=== PATIENT | female | born 1930 | race Caucasian/White ===

== ENCOUNTER 2019-03-13 17:39 | Emergency (ER) | payer MEDICARE, OTHER ==
[2019-03-13 17:48] VITALS: RESP 18; TEMP 98.3
[2019-03-13] MEDS ORDERED: TOPICAL SKIN ADHESIVE 1 EACH AMP TOPICAL ONE (19:18)
--- NOTE | 2019-03-13 19:20 | CT ---
EXAMINATION TYPE: CT facial bones wo con DATE OF EXAM: 03/13/2019 COMPARISON: None HISTORY: fall Pain CT DLP: 1039.2 mGycm Automated exposure control for dose reduction was used. TECHNIQUE: CT scan of the sinuses is performed without contrast, axial images are obtained, coronal r eformatted images are also reviewed. FINDINGS: The mandibular ring is intact. Temporomandibular joints are intact. The maxilla is intact. Zygomatic arches appear normal. Nasal bone is intact. Orbital margins are intact. There is no evidence of a blowout fracture. There is mild mucosal thicken ing at the left ostiomeatal complex. There is no evidence of retro-orbital mass. There is fluid level in the left maxillary sinus. There is soft tissue air bubble inferior to the left orbit. IMPRESSION: Mucosal thickening and fluid level left maxillary sinus. Soft tissue air lateral to the l eft maxillary sinus and inferior left orbit consistent with laceration. Minimal ethmoid sinusitis. No fracture line seen.
--- NOTE | 2019-03-13 19:26 | CT ---
EXAMINATION TYPE: CT brain ej khan DATE OF EXAM: 03/13/2019 COMPARISON: None HISTORY: fall Headache. Neck pain CT DLP: 1039.2 mGycm Automated exposure control for dose reduction was used. TECHNIQUE: CT scan of the head and cervical spine are performed without contrast. FINDINGS: There is cerebral cortical atrophy. There is hypodensity in the periventricular white mat ter. There is no mass effect nor midline shift. There is no sign of intracranial hemorrhage. The calv arium is intact. There is fluid level left maxillary sinus. Cervical vertebra have normal alignment. There is degenerative mild disc space narrowing at C5-6. Pos terior elements are intact. Skull base is intact. There is no evidence for fracture. IMPRESSION: Mild atrophy. Chronic small vessel ischemia. No acute intracranial abnormality. Mild spondylotic changes. No fracture seen.
[2019-03-13 19:31] LABS: Basophils # (A) 0.1 k/uL (0-0.2); Basophils % (A) 1 %; Eosinophils # (A) 0.1 k/uL (0-0.7); Eosinophils % (A) 1 %; HCT 38.8 % (34.0-46.0); HGB 13.2 gm/dL (11.4-16.0); Lymphocytes # (A) 1.7 k/uL (1.0-4.8); Lymphocytes % (A) 19 %; MCHC 33.9 g/dL (31.0-37.0); MCV 94.5 fL (80.0-100.0); Mean Platelet Volume 7.3; Monocytes # (A) 0.8 k/uL (0-1.0); Monocytes % (A) 9 %; Neutrophils # (A) 6.3 k/uL (1.3-7.7); Neutrophils % (A) 68 %; Platelet Count 205 k/uL (150-450); RBC 4.11 m/uL (3.80-5.40); WBC 9.2 k/uL (3.8-10.6)
[2019-03-13 19:35] LABS: Albumin 3.7 g/dL (3.5-5.0); Calcium 9.4 mg/dL (8.4-10.2); INR 0.9 (<1.2); Partial Thromboplastin Time 25.6 sec (22.0-30.0); Potassium 4.8 mmol/L (3.5-5.1); Prothrombin Time 10.2 sec (9.0-12.0); Total Bilirubin 0.8 mg/dL (0.2-1.3); Total Protein 7.2 g/dL (6.3-8.2)
[2019-03-13] MEDS ORDERED: DIPH,PERTUS(ACELL)TETVAC-LF 0.5 ML VIAL IM ONE (19:36)
--- NOTE | 2019-03-13 19:55 | XR ---
EXAMINATION TYPE: XR chest 1V DATE OF EXAM: 03/13/2019 COMPARISON: NONE HISTORY: Weakness TECHNIQUE: Single frontal view of the chest is obtained. FINDINGS: Heart is enlarged. There is no heart failure. Costophrenic angles are clear. Thoracic aort a is atheromatous. Lungs are clear of consolidation. IMPRESSION: Mild cardiomegaly. No active cardiopulmonary disease.
[2019-03-13 20:02] LABS: Appearance,Urine Cloudy (Clear); Bacteria,Urine Moderate /hpf; Bilirubin,Urine Negative (Negative); Blood,Urine Large (Negative); Color,Urine Yellow; Glucose,Urine (UA) Negative (Negative); Ketones,Urine Negative (Negative); Leukocyte Esterase,Urine Large (Negative); Nitrite,Urine Negative (Negative); Protein,Urine Trace (Negative); RBC,Urine >182 /hpf (0-5); Specific Gravity,Urine 1.014 (1.001-1.035); Squamous Epithelial Cell,Urine 3 /hpf (0-4); Urobilinogen,Urine <2.0 mg/dL (<2.0); WBC,Urine >182 /hpf (0-5)
[2019-03-13] MEDS ORDERED: cefTRIAXone IN SWFI 1,000 MG/10 ML SYRINGE IVP STA (20:26)
--- NOTE | 2019-03-13 20:33 | ED ---
Fall HPI - General Chief Complaint: Fall Stated Complaint: Fall Time Seen by Provider: 03/13/19 18:15 Source: patient, RN notes reviewed, old records reviewed Mode of arrival: EMS - History of Present Illness Initial Comments: 88 rolled female presents today for trip and fall. Patient reports that she fell bumping water bottle in her driveway. She fell onto her face causing his swelling and abrasion over left eye, chin. She has has an abrasion over her hand. She denies any other significant complaints of pain. Patient reports that she wasn't feeling dizzy or lightheaded prior to this. - Related Data Previous Rx's Medication Instructions Recorded Cephalexin [Keflex] 500 mg PO Q6HR #28 cap 03/13/19 Ibuprofen 600 mg PO TID #20 tablet 03/13/19 Allergies Allergy/AdvReac Type Severity Reaction Status Date / Time aspirin Allergy Abdominal Verified 03/13/19 17:48 Pain Review of Systems ROS Statement: Those systems with pertinent positive or pertinent negative responses have been documented in the HPI. ROS Other: All systems not noted in ROS Statement are negative. Past Medical History Past Medical History: Hypertension History of Any Multi-Drug Resistant Organisms: None Reported Past Surgical History: Orthopedic Surgery Past Psychological History: No Psychological Hx Reported Smoking Status: Former smoker Past Alcohol Use History: None Reported Past Drug Use History: None Reported General Exam - General Exam Comments Initial Comments: 88-year-old female. Alert and oriented. No distress. Limitations: no limitations General appearance: alert, in no apparent distress Head exam: Present: atraumatic, normocephalic, normal inspection Eye exam: Present: PERRL, EOMI. Absent: normal appearance (He has erythema, swelling. ), scleral icterus, conjunctival injection, periorbital swelling ENT exam: Present: normal exam, mucous membranes moist Neck exam: Present: normal inspection. Absent: tenderness, meningismus, lymphadenopathy Respiratory exam: Present: normal lung sounds bilaterally. Absent: respiratory distress, wheezes, rales, rhonchi, stridor Cardiovascular Exam: Present: regular rate, normal rhythm, normal heart sounds. Absent: systolic murmur, diastolic murmur, rubs, gallop, clicks GI/Abdominal exam: Present: soft, normal bowel sounds. Absent: distended, tenderness, guarding, rebound, rigid Extremities exam: Present: normal inspection, full ROM, normal capillary refill, other (swelling over R ankle, no deformity, patient is neurovascularly intact. Tenderness over R lateral malleolousl. ). Absent: tenderness, pedal edema, joint swelling, calf tenderness Back exam: Present: normal inspection Neurological exam: Present: alert, oriented X3, CN II-XII intact Psychiatric exam: Present: normal affect, normal mood Skin exam: Present: warm, dry, intact, normal color. Absent: rash Course Vital Signs 03/13/19 03/13/19 17:43 20:46 Temperature 98.3 F Pulse Rate 77 79 Respiratory 18 18 Rate Blood Pressure 182/86 158/52 O2 Sat by Pulse 96 95 Oximetry Procedures - Laceration Laceration #1 Site: face (abrasion over L eyebrow) Size (cm): 2 Description: linear Depth: simple, single layer Pre-repair: wound explored, irrigated extensively Type of Sutures: other (dermabond) Patient Tolerated Procedure: well, no complications Medical Decision Making - Medical Decision Making 88 year old female with CC of fall, L ankle pain, facial abrasions. Labs and EKG obtained. Patient has evidence of UTI, given IV rocephin. Patient CT brain and Cspine are negative for acute process. PAtient has ankle and leg xray are negat alda for fracture. Given ROSY wrap for ankle sprain. Wound over eyebrow was cleaned and dermabond applied. Discussed close follow up with PCP and return parameters discussed. - Lab Data Result diagrams: 03/13/19 19:12 03/13/19 19:12 Lab Results 03/13/19 03/13/19 03/13/19 Range/Units 18:08 19:12 19:12 WBC 9.2 (3.8-10.6) k/uL RBC 4.11 (3.80-5.40) m/uL Hgb 13.2 (11.4-16.0) gm/dL Hct 38.8 (34.0-46.0) % MCV 94.5 (80.0-100.0) fL MCH 32.0 (25.0-35.0) pg MCHC 33.9 (31.0-37.0) g/dL RDW 14.0 (11.5-15.5) % Plt Count 205 (150-450) k/uL Neutrophils % 68 % Lymphocytes % 19 % Monocytes % 9 % Eosinophils % 1 % Basophils % 1 % Neutrophils # 6.3 (1.3-7.7) k/uL Lymphocytes # 1.7 (1.0-4.8) k/uL Monocytes # 0.8 (0-1.0) k/uL Eosinophils # 0.1 (0-0.7) k/uL Basophils # 0.1 (0-0.2) k/uL PT (9.0-12.0) sec INR (<1.2) APTT (22.0-30.0) sec Sodium 139 (137-145) mmol/L Potassium 4.8 (3.5-5.1) mmol/L Chloride 108 H (98-107) mmol/L Carbon Dioxide 23 (22-30) mmol/L Anion Gap 8 mmol/L BUN 18 H (7-17) mg/dL Creatinine 0.98 (0.52-1.04) mg/dL Est GFR (CKD-EPI)AfAm 60 (>60 ml/min/1.73 sqM) Est GFR (CKD-EPI)NonAf 52 (>60 ml/min/1.73 sqM) Glucose 135 H (74-99) mg/dL Calcium 9.4 (8.4-10.2) mg/dL Total Bilirubin 0.8 (0.2-1.3) mg/dL AST 17 (14-36) U/L ALT 15 (9-52) U/L Alkaline Phosphatase 85 (38-126) U/L Total Protein 7.2 (6.3-8.2) g/dL Albumin 3.7 (3.5-5.0) g/dL Urine Color Yellow Urine Appearance Cloudy H (Clear) Urine pH 7.0 (5.0-8.0) Ur Specific [place] 1.014 (1.001-1.035) Urine Protein Trace H (Negative) Urine Glucose (UA) Negative (Negative) Urine Ketones Negative (Negative) Urine Blood Large H (Negative) Urine Nitrite Negative (Negative) Urine Bilirubin Negative (Negative) Urine Urobilinogen <2.0 (<2.0) mg/dL Ur Leukocyte Esterase Large H (Negative) Urine RBC >182 H (0-5) /hpf Urine WBC >182 H (0-5) /hpf Urine WBC Clumps Moderate H (None) /hpf Ur Squamous Epith Cells 3 (0-4) /hpf Urine Bacteria Moderate H (None) /hpf 03/13/19 Range/Units 19:12 WBC (3.8-10.6) k/uL RBC (3.80-5.40) m/uL Hgb (11.4-16.0) gm/dL Hct (34.0-46.0) % MCV (80.0-100.0) fL MCH (25.0-35.0) pg MCHC (31.0-37.0) g/dL RDW (11.5-15.5) % Plt Count (150-450) k/uL Neutrophils % % Lymphocytes % % Monocytes % % Eosinophils % % Basophils % % Neutrophils # (1.3-7.7) k/uL Lymphocytes # (1.0-4.8) k/uL Monocytes # (0-1.0) k/uL Eosinophils # (0-0.7) k/uL Basophils # (0-0.2) k/uL PT 10.2 (9.0-12.0) sec INR 0.9 (<1.2) APTT 25.6 (22.0-30.0) sec Sodium (137-145) mmol/L Potassium (3.5-5.1) mmol/L Chloride (98-107) mmol/L Carbon Dioxide (22-30) mmol/L Anion Gap mmol/L BUN (7-17) mg/dL Creatinine (0.52-1.04) mg/dL Est GFR (CKD-EPI)AfAm (>60 ml/min/1.73 sqM) Est GFR (CKD-EPI)NonAf (>60 ml/min/1.73 sqM) Glucose (74-99) mg/dL Calcium (8.4-10.2) mg/dL Total Bilirubin (0.2-1.3) mg/dL AST (14-36) U/L ALT (9-52) U/L Alkaline Phosphatase (38-126) U/L Total Protein (6.3-8.2) g/dL Albumin (3.5-5.0) g/dL Urine Color Urine Appearance (Clear) Urine pH (5.0-8.0) Ur Specific [place] (1.001-1.035) Urine Protein (Negative) Urine Glucose (UA) (Negative) Urine Ketones (Negative) Urine Blood (Negative) Urine Nitrite (Negative) Urine Bilirubin (Negative) Urine Urobilinogen (<2.0) mg/dL Ur Leukocyte Esterase (Negative) Urine RBC (0-5) /hpf Urine WBC (0-5) /hpf Urine WBC Clumps (None) /hpf Ur Squamous Epith Cells (0-4) /hpf Urine Bacteria (None) /hpf 03/13/19 20:32 EKG performed at 2024 shows normal sinus rhythm normal ECG. Ventricular rate of 76 bpm. Normal is 134 ms. QS duration is 82 ms. QT QTc is 362/[address] elevation or T-wave inversions. - Radiology Data Radiology results: report reviewed Facial CT shows mucosal thickening of the fluid in the level of the left maxillary sinus. Soft tissue air lateral to the left maxillary sinus and inferior left orbit consistent with laceration. Ethmoid sinusitis. No fracture line is seen. CT shows mild atrophy, chronic small vessel ischemic changes. No acute injury cranial abnormality. Mild spondylytic changes. No fracture seen. Disposition Clinical Impression: UTI (urinary tract infection), Fall, Facial contusion, Facial abrasion, Ankle sprain Disposition: HOME SELF-CARE Condition: Good Instructions (If sedation given, give patient instructions): Ankle Sprain (ED), Urinary Tract Infection in Women (ED), Abrasion (ED) Additional Instructions: Patient advised to follow-up with your primary care physician. Ice the areas of bruising and soreness. Take the antibiotics as prescribed. Rest ice and elevate her foot and ankle. Return to the emergency department if any alarming signs or symptoms occur. Prescriptions: Ibuprofen 600 mg PO TID #20 tablet Cephalexin [Keflex] 500 mg PO Q6HR #28 cap Is patient prescribed a controlled substance at d/c from ED?: No Referrals: Rodolfo Landry MD [Primary Care Provider] - 1-2 days Time of Disposition: 21:14
[2019-03-13 20:47] VITALS: BP 158/52; PULSE 79
--- NOTE | 2019-03-13 21:06 | XR ---
EXAMINATION TYPE: XR ankle complete LT DATE OF EXAM: 03/13/2019 COMPARISON: NONE HISTORY: Ankle pain TECHNIQUE: 3 views FINDINGS: Ankle mortise is anatomic. There is Achilles calcaneal spurring. I see no fracture nor disl ocation. IMPRESSION: No acute abnormality of the left ankle.
--- NOTE | 2019-03-13 21:07 | XR ---
EXAMINATION TYPE: XR tibia fibula LT DATE OF EXAM: 03/13/2019 COMPARISON: NONE HISTORY: Pain TECHNIQUE: 4 views FINDINGS: Tibia and fibula appear intact. 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 Ankle morti se is anatomic. IMPRESSION: No acute abnormality of the left tibia and fibula.
--- NOTE | 2019-03-13 21:07 | XR ---
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 Left hip joint is intact. There is vascular calcification. I see no fracture nor dislocation. IMPRESSION: Negative left femur exam.
[2019-03-13] MEDS ORDERED: CEPHALEXIN 500MG STARTER PACK 4 CAP BTL PO STA (21:16)
[2019-03-13] MEDS ORDERED: ACET/COD 300 MG/30 MG STARTER PACK 6 TAB BTL PO STA (21:16)
== END 2019-03-13 21:38 | disposition home or self-care (01) ==
LOC: EC 17:39
DX: S00.12XA Contusion of left eyelid and periocular area, initial encounter (principal); S93.402A Sprain of unspecified ligament of left ankle, initial encounter; N39.0 Urinary tract infection, site not specified; I10 Essential (primary) hypertension; Z23 Encounter for immunization; Z88.6 Allergy status to analgesic agent; Z87.891 Personal history of nicotine dependence; W01.198A Fall on same level from slipping, tripping and stumbling with subsequent striking against other object, initial encounter; Y93.89 Activity, other specified; Y92.89 Other specified places as the place of occurrence of the external cause
CPT/HCPCS: 36415; 93005; 80053; 85025; 85610; 85730; 81001; 87086; 87077; 87186; 73552; 73590; 73610; 71045; 72125; 70486; 70450; 90715; 99285; 96374; 90471; J0696

== ENCOUNTER 2020-03-17 20:12 | Emergency (ER) | payer MEDICARE, OTHER ==
[2020-03-17] MEDS ORDERED: SODIUM CHLORIDE 0.9% 1,000 ML IV STA (20:24)
[2020-03-17] MEDS ORDERED: ACETAMINOPHEN TAB 500 MG TAB PO STA (20:24)
--- NOTE | 2020-03-17 20:27 | ED ---
Weakness HPI - General Stated complaint: flu like symptoms Time Seen by Provider: 03/17/20 20:22 Source: RN notes reviewed, old records reviewed - History of Present Illness Initial comments: This is a 89-year-old female to the ER for evaluation patient presents today for evaluation regards to not feeling well patient does have history of headaches bodyaches fevers weakness not feeling well. A she'll poor story with secondary dementia MD Complaint: generalized weakness, lack of energy, difficulty walking -: days(s) Location: generalized Severity: moderate Severity scale (1-10): 5 Quality: constant Consistency: constant Improves with: none Worsens with: none Context: recent illness Associated Symptoms: denies other symptoms - Related Data Previous Rx's Medication Instructions Recorded Cephalexin [Keflex] 500 mg PO Q6HR #28 cap 03/13/19 Ibuprofen 600 mg PO TID #20 tablet 03/13/19 Nitrofurantoin Monohyd/M-Cryst 100 mg PO Q12HR #10 cap 03/17/20 [Macrobid] Allergies Allergy/AdvReac Type Severity Reaction Status Date / Time aspirin Allergy Abdominal Verified 03/17/20 20:28 Pain Review of Systems ROS Statement: Those systems with pertinent positive or pertinent negative responses have been documented in the HPI. ROS Other: All systems not noted in ROS Statement are negative. Past Medical History Past Medical History: Hypertension History of Any Multi-Drug Resistant Organisms: None Reported Past Surgical History: Orthopedic Surgery Past Psychological History: No Psychological Hx Reported Past Alcohol Use History: None Reported Past Drug Use History: None Reported General Exam General appearance: alert, in no apparent distress Head exam: Present: atraumatic, normocephalic, normal inspection Eye exam: Present: normal appearance, PERRL, EOMI. Absent: scleral icterus, conjunctival injection, periorbital swelling ENT exam: Present: normal exam, mucous membranes moist Neck exam: Present: normal inspection. Absent: tenderness, meningismus, lymphadenopathy Respiratory exam: Present: normal lung sounds bilaterally. Absent: respiratory distress, wheezes, rales, rhonchi, stridor Cardiovascular Exam: Present: regular rate, normal rhythm, normal heart sounds. Absent: systolic murmur, diastolic murmur, rubs, gallop, clicks GI/Abdominal exam: Present: soft, normal bowel sounds. Absent: distended, tenderness, guarding, rebound, rigid Extremities exam: Present: normal inspection, full ROM, normal capillary refill. Absent: tenderness, pedal edema, joint swelling, calf tenderness Back exam: Present: normal inspection Neurological exam: Present: alert, oriented X3, CN II-XII intact Psychiatric exam: Present: normal affect, normal mood Skin exam: Present: warm, dry, intact, normal color. Absent: rash Course Vital Signs 03/17/20 03/17/20 20:16 22:16 Temperature 99.4 F 98.3 F Pulse Rate 68 65 Respiratory 18 18 Rate Blood Pressure 153/95 176/70 O2 Sat by Pulse 97 96 Oximetry - Reevaluation(s) Reevaluation #1: Medical records reviewed No real significant improvement here in the emergency department Patient informed results and questions answered EKG Findings - EKG Comments: EKG Findings:: EKG is sinus rhythm 71, WA 142 QRS 88 QTc 4:15 Medical Decision Making - Medical Decision Making 89 female with UTI dehydration weakness. Patient isn't significantly no distress here in the ER we will discharge patient home from outpatient treatment - Lab Data Result diagrams: 03/17/20 20:37 03/17/20 20:37 Lab Results 03/17/20 03/17/20 03/17/20 Range/Units 20:37 20:37 20:37 WBC 7.3 (3.8-10.6) k/uL RBC 4.59 (3.80-5.40) m/uL Hgb 14.5 (11.4-16.0) gm/dL Hct 43.9 (34.0-46.0) % MCV 95.5 (80.0-100.0) fL MCH 31.7 (25.0-35.0) pg MCHC 33.2 (31.0-37.0) g/dL RDW 13.6 (11.5-15.5) % Plt Count 155 (150-450) k/uL MPV 9.7 Neutrophils % 61 % Lymphocytes % 23 % Monocytes % 9 % Eosinophils % 2 % Basophils % 2 % Neutrophils # 4.5 (1.3-7.7) k/uL Lymphocytes # 1.7 (1.0-4.8) k/uL Monocytes # 0.7 (0-1.0) k/uL Eosinophils # 0.1 (0-0.7) k/uL Basophils # 0.1 (0-0.2) k/uL Sodium 134 L (137-145) mmol/L Potassium 3.9 (3.5-5.1) mmol/L Chloride 104 (98-107) mmol/L Carbon Dioxide 26 (22-30) mmol/L Anion Gap 4 mmol/L BUN 16 (7-17) mg/dL Creatinine 0.97 (0.52-1.04) mg/dL Est GFR (CKD-EPI)AfAm 61 (>60 ml/min/1.73 sqM) Est GFR (CKD-EPI)NonAf 53 (>60 ml/min/1.73 sqM) Glucose 132 H (74-99) mg/dL Plasma Lactic Acid Kevin 1.4 (0.7-2.0) mmol/L Calcium 8.9 (8.4-10.2) mg/dL Phosphorus 3.0 (2.5-4.5) mg/dL Magnesium 1.7 (1.6-2.3) mg/dL Ferritin 50.5 (10.0-291.0) ng/mL Total Bilirubin 0.9 (0.2-1.3) mg/dL AST 20 (14-36) U/L ALT 11 (4-34) U/L Alkaline Phosphatase 72 (38-126) U/L Lactate Dehydrogenase 452 (313-618) U/L Creatine Kinase 22 L (30-135) U/L C-Reactive Protein 9.2 (<10.0) mg/L Total Protein 7.2 (6.3-8.2) g/dL Albumin 3.7 (3.5-5.0) g/dL Urine Color Urine Appearance (Clear) Urine pH (5.0-8.0) Ur Specific [place] (1.001-1.035) Urine Protein (Negative) Urine Glucose (UA) (Negative) Urine Ketones (Negative) Urine Blood (Negative) Urine Nitrite (Negative) Urine Bilirubin (Negative) Urine Urobilinogen (<2.0) mg/dL Ur Leukocyte Esterase (Negative) Urine RBC (0-5) /hpf Urine WBC (0-5) /hpf Urine WBC Clumps (None) /hpf Ur Squamous Epith Cells (0-4) /hpf Urine Bacteria (None) /hpf Urine Mucus (None) /hpf Influenza Type A RNA (Not Detectd) Influenza Type B (PCR) (Not Detectd) 03/17/20 03/17/20 Range/Units 21:30 21:30 WBC (3.8-10.6) k/uL RBC (3.80-5.40) m/uL Hgb (11.4-16.0) gm/dL Hct (34.0-46.0) % MCV (80.0-100.0) fL MCH (25.0-35.0) pg MCHC (31.0-37.0) g/dL RDW (11.5-15.5) % Plt Count (150-450) k/uL MPV Neutrophils % % Lymphocytes % % Monocytes % % Eosinophils % % Basophils % % Neutrophils # (1.3-7.7) k/uL Lymphocytes # (1.0-4.8) k/uL Monocytes # (0-1.0) k/uL Eosinophils # (0-0.7) k/uL Basophils # (0-0.2) k/uL Sodium (137-145) mmol/L Potassium (3.5-5.1) mmol/L Chloride (98-107) mmol/L Carbon Dioxide (22-30) mmol/L Anion Gap mmol/L BUN (7-17) mg/dL Creatinine (0.52-1.04) mg/dL Est GFR (CKD-EPI)AfAm (>60 ml/min/1.73 sqM) Est GFR (CKD-EPI)NonAf (>60 ml/min/1.73 sqM) Glucose (74-99) mg/dL Plasma Lactic Acid Kevin (0.7-2.0) mmol/L Calcium (8.4-10.2) mg/dL Phosphorus (2.5-4.5) mg/dL Magnesium (1.6-2.3) mg/dL Ferritin (10.0-291.0) ng/mL Total Bilirubin (0.2-1.3) mg/dL AST (14-36) U/L ALT (4-34) U/L Alkaline Phosphatase (38-126) U/L Lactate Dehydrogenase (313-618) U/L Creatine Kinase (30-135) U/L C-Reactive Protein (<10.0) mg/L Total Protein (6.3-8.2) g/dL Albumin (3.5-5.0) g/dL Urine Color Light Yellow Urine Appearance Cloudy H (Clear) Urine pH 7.0 (5.0-8.0) Ur Specific [place] 1.011 (1.001-1.035) Urine Protein Negative (Negative) Urine Glucose (UA) Negative (Negative) Urine Ketones Negative (Negative) Urine Blood Small H (Negative) Urine Nitrite Negative (Negative) Urine Bilirubin Negative (Negative) Urine Urobilinogen <2.0 (<2.0) mg/dL Ur Leukocyte Esterase Large H (Negative) Urine RBC 13 H (0-5) /hpf Urine WBC 99 H (0-5) /hpf Urine WBC Clumps Few H (None) /hpf Ur Squamous Epith Cells 2 (0-4) /hpf Urine Bacteria Occasional H (None) /hpf Urine Mucus Rare H (None) /hpf Influenza Type A RNA Not Detected (Not Detectd) Influenza Type B (PCR) Not Detected (Not Detectd) - Radiology Data Radiology results: report reviewed (X-ray abdominal series and chest is negative for acute disease), image reviewed Disposition Clinical Impression: Gastroenteritis, Dehydration, UTI (urinary tract infection) Disposition: HOME SELF-CARE Condition: Good Instructions (If sedation given, give patient instructions): Urinary Tract Infection in Women (ED), Acute Nausea and Vomiting (ED), Acute Diarrhea (ED) Prescriptions: Nitrofurantoin Monohyd/M-Cryst [Macrobid] 100 mg PO Q12HR #10 cap Is patient prescribed a controlled substance at d/c from ED?: No Referrals: None,Stated [REFERRING] - 1-2 days
[2020-03-17 20:28] VITALS: RESP 18
[2020-03-17 21:05] LABS: Basophils # (A) 0.1 k/uL (0-0.2); Basophils % (A) 2 %; Eosinophils # (A) 0.1 k/uL (0-0.7); Eosinophils % (A) 2 %; HCT 43.9 % (34.0-46.0); HGB 14.5 gm/dL (11.4-16.0); Lymphocytes # (A) 1.7 k/uL (1.0-4.8); Lymphocytes % (A) 23 %; MCH 31.7 pg (25.0-35.0); MCHC 33.2 g/dL (31.0-37.0); MCV 95.5 fL (80.0-100.0); Mean Platelet Volume 9.7; Monocytes # (A) 0.7 k/uL (0-1.0); Monocytes % (A) 9 %; Neutrophils # (A) 4.5 k/uL (1.3-7.7); Neutrophils % (A) 61 %; Platelet Count 155 k/uL (150-450); RBC 4.59 m/uL (3.80-5.40); RDW 13.6 % (11.5-15.5); WBC 7.3 k/uL (3.8-10.6)
[2020-03-17 21:18] LABS: Potassium 3.9 mmol/L (3.5-5.1)
[2020-03-17 21:19] LABS: Albumin 3.7 g/dL (3.5-5.0); C Reactive Protein 9.2 mg/L (<10.0); Calcium 8.9 mg/dL (8.4-10.2); Magnesium 1.7 mg/dL (1.6-2.3); Total Bilirubin 0.9 mg/dL (0.2-1.3); Total Protein 7.2 g/dL (6.3-8.2)
--- NOTE | 2020-03-17 21:33 | XR ---
EXAMINATION TYPE: XR abdomen acute w cxr DATE OF EXAM: 03/17/2020 COMPARISON: Chest x-ray 03/13/2019 HISTORY: Weakness. Abdominal pain TECHNIQUE: 4 views FINDINGS: There is coarse pulmonary interstitial infiltrate. Heart is enlarged. Thoracic aorta is ath eromatous. There is no sign of intestinal obstruction or pneumoperitoneum. Fecal pattern is normal. There is pos sible calculus in the lower pole of the left kidney. There is possible right-sided renal calculi. The re is atherosclerotic vascular calcification. IMPRESSION: Cardiomegaly and mild pulmonary interstitial density that could be minimal heart failure. Interstitial density increased compared to old exam. Nonacute abdomen.
[2020-03-17] MEDS ORDERED: ONDANSETRON 4 MG ODT STARTER PACK 2 TAB BTL PO STA (21:36)
[2020-03-17 22:03] LABS: Appearance,Urine Cloudy (Clear); Bacteria,Urine Occasional /hpf; Bilirubin,Urine Negative (Negative); Blood,Urine Small (Negative); Color,Urine Light Yellow; Glucose,Urine (UA) Negative (Negative); Ketones,Urine Negative (Negative); Leukocyte Esterase,Urine Large (Negative); Mucus,Urine Rare /hpf; Nitrite,Urine Negative (Negative); Protein,Urine Negative (Negative); RBC,Urine 13 /hpf (0-5); Specific Gravity,Urine 1.011 (1.001-1.035); Squamous Epithelial Cell,Urine 2 /hpf (0-4); Urobilinogen,Urine <2.0 mg/dL (<2.0); WBC,Urine 99 /hpf (0-5)
[2020-03-17 22:19] VITALS: BP 176/70; PULSE 65; TEMP 98.3
[2020-03-17] MEDS ORDERED: cefTRIAXone IN SWFI 1,000 MG/10 ML SYRINGE IVP STA (22:28)
[2020-03-17] MEDS ORDERED: NITROFURANTOIN MONOHYD/M-CRYST 100 MG CAP PO STA (22:28)
[2020-03-18 09:46] LABS: Ferritin 50.5 ng/mL (10.0-291.0)
== END 2020-03-17 23:08 | disposition home or self-care (01) ==
LOC: EC 20:12
DX: N39.0 Urinary tract infection, site not specified (principal); K52.9 Noninfective gastroenteritis and colitis, unspecified; E86.0 Dehydration; Z88.6 Allergy status to analgesic agent
CPT/HCPCS: 36415; 93005; 80053; 82728; 82550; 83605; 83615; 83735; 84100; 85025; 86140; 81001; 87086; 87077; 87186; 87502; 74022; 99285; 96374; 96361; J0696; S0119

== ENCOUNTER 2020-06-29 11:39 | Inpatient (IN) | payer MEDICARE, OTHER ==
[2020-06-29] MEDS ORDERED: SODIUM CHLORIDE 0.9% 500 ML 500 ML IV STA (11:41)
[2020-06-29] MEDS ORDERED: MORPHINE SULFATE 4 MG/ML SYRINGE IVP STA (11:43)
--- NOTE | 2020-06-29 12:13 | ED ---
General Adult HPI - General Chief complaint: Fall Stated complaint: Leg pain Time Seen by Provider: 06/29/20 11:40 Source: patient, RN notes reviewed, old records reviewed Mode of arrival: EMS Limitations: no limitations - History of Present Illness Initial comments: 89-year-old female presents by EMS with right hip pain. Patient denies fall. She was found by her family member sitting in the kitchen. She had been sitting there for approximately 12-14 hours. She denies chest pain or dyspnea. She denies head injury. She does not believe she fell but is not a clear historian. No nausea vomiting. She states she has been eating and drinking well prior to this. No fevers. - Related Data Previous Rx's Medication Instructions Recorded Cephalexin [Keflex] 500 mg PO Q6HR #28 cap 03/13/19 Ibuprofen 600 mg PO TID #20 tablet 03/13/19 Nitrofurantoin Monohyd/M-Cryst 100 mg PO Q12HR #10 cap 03/17/20 [Macrobid] Allergies Allergy/AdvReac Type Severity Reaction Status Date / Time aspirin Allergy Abdominal Verified 06/29/20 13:19 Pain Review of Systems ROS Statement: Those systems with pertinent positive or pertinent negative responses have been documented in the HPI. ROS Other: All systems not noted in ROS Statement are negative. Past Medical History Past Medical History: Hypertension Additional Past Medical History / Comment(s): skin cancer on nose- removed History of Any Multi-Drug Resistant Organisms: None Reported Past Surgical History: Orthopedic Surgery Past Psychological History: No Psychological Hx Reported Smoking Status: Never smoker Past Alcohol Use History: None Reported Past Drug Use History: None Reported General Exam Limitations: no limitations General appearance: alert, in no apparent distress Head exam: Present: atraumatic, normocephalic Eye exam: Present: normal appearance, PERRL ENT exam: Present: normal exam Neck exam: Present: normal inspection. Absent: tenderness, meningismus Respiratory exam: Present: normal lung sounds bilaterally. Absent: respiratory distress, wheezes Cardiovascular Exam: Present: regular rate, normal rhythm GI/Abdominal exam: Present: soft. Absent: distended, tenderness, guarding, rebound Extremities exam: Present: other (Distal pulses are 2+, the right hip is shortened and externally rotated with severe pain with any movement.). Absent: pedal edema, joint swelling, calf tenderness Neurological exam: Present: alert, oriented X3. Absent: motor sensory deficit Course Vital Signs 06/29/20 06/29/20 11:44 13:13 Temperature 98.1 F Pulse Rate 69 70 Respiratory 16 15 Rate Blood Pressure 223/88 201/69 O2 Sat by Pulse 96 98 Oximetry EKG Findings - EKG Comments: EKG Findings:: EKG: Sinus rhythm with PVC, baseline artifact, no ST segment elevation, rate of 68, CT interval 150, QRS duration 100, QTC 414 Medical Decision Making - Medical Decision Making 89 yo female presenting with suspected fall, and right pain. No external signs of trauma, no head injury reported. Workup initiated including x-rays of the chest, pelvis, right hip and right femur. Patient does have a midshaft femur fracture. She has good sensation distally with normal pulses. Severe pain with any movement. Head CT negative for intracranial hemorrhage or mass effect. I did discuss case with Dr. Marizol willard for orthopedics. He will admit for operative repair tomorrow for patient will be kept nothing by mouth after midnight. Medicine placed on consult, Dr. Santo has been contacted for medical clearance. Normal CBC, CMP showing normal white lites. Lactic acid is 3.6 suspect this is from dehydration as the patient was on the ground for proximally 14 hours. There is no sign of rhabdomyolysis, CK is 130 - Lab Data Result diagrams: 06/29/20 12:04 06/29/20 12:04 Lab Results 06/29/20 06/29/20 06/29/20 Range/Units 12:04 12:04 12:04 WBC 9.0 (3.8-10.6) k/uL RBC 3.59 L (3.80-5.40) m/uL Hgb 11.7 (11.4-16.0) gm/dL Hct 35.0 (34.0-46.0) % MCV 97.6 (80.0-100.0) fL MCH 32.5 (25.0-35.0) pg MCHC 33.4 (31.0-37.0) g/dL RDW 15.8 H (11.5-15.5) % Plt Count 149 L (150-450) k/uL MPV 10.2 Neutrophils % 79 % Lymphocytes % 13 % Monocytes % 7 % Eosinophils % 0 % Basophils % 0 % Neutrophils # 7.1 (1.3-7.7) k/uL Lymphocytes # 1.2 (1.0-4.8) k/uL Monocytes # 0.6 (0-1.0) k/uL Eosinophils # 0.0 (0-0.7) k/uL Basophils # 0.0 (0-0.2) k/uL Macrocytosis Slight PT 10.5 (9.0-12.0) sec INR 1.0 (<1.2) APTT 21.9 L (22.0-30.0) sec Sodium 138 (137-145) mmol/L Potassium 4.3 (3.5-5.1) mmol/L Chloride 108 H (98-107) mmol/L Carbon Dioxide 22 (22-30) mmol/L Anion Gap 8 mmol/L BUN 20 H (7-17) mg/dL Creatinine 0.86 (0.52-1.04) mg/dL Est GFR (CKD-EPI)AfAm 71 (>60 ml/min/1.73 sqM) Est GFR (CKD-EPI)NonAf 61 (>60 ml/min/1.73 sqM) Glucose 196 H (74-99) mg/dL Plasma Lactic Acid Kevin (0.7-2.0) mmol/L Calcium 9.1 (8.4-10.2) mg/dL Magnesium 2.0 (1.6-2.3) mg/dL Total Bilirubin 0.8 (0.2-1.3) mg/dL AST 20 (14-36) U/L ALT 10 (4-34) U/L Alkaline Phosphatase 70 (38-126) U/L Creatine Kinase 135 (30-135) U/L Total Protein 6.4 (6.3-8.2) g/dL Albumin 3.5 (3.5-5.0) g/dL Blood Type Blood Type Recheck Bld Type Recheck Status Antibody Screen Spec Expiration Date 06/29/20 06/29/20 Range/Units 12:04 12:04 WBC (3.8-10.6) k/uL RBC (3.80-5.40) m/uL Hgb (11.4-16.0) gm/dL Hct (34.0-46.0) % MCV (80.0-100.0) fL MCH (25.0-35.0) pg MCHC (31.0-37.0) g/dL RDW (11.5-15.5) % Plt Count (150-450) k/uL MPV Neutrophils % % Lymphocytes % % Monocytes % % Eosinophils % % Basophils % % Neutrophils # (1.3-7.7) k/uL Lymphocytes # (1.0-4.8) k/uL Monocytes # (0-1.0) k/uL Eosinophils # (0-0.7) k/uL Basophils # (0-0.2) k/uL Macrocytosis PT (9.0-12.0) sec INR (<1.2) APTT (22.0-30.0) sec Sodium (137-145) mmol/L Potassium (3.5-5.1) mmol/L Chloride (98-107) mmol/L Carbon Dioxide (22-30) mmol/L Anion Gap mmol/L BUN (7-17) mg/dL Creatinine (0.52-1.04) mg/dL Est GFR (CKD-EPI)AfAm (>60 ml/min/1.73 sqM) Est GFR (CKD-EPI)NonAf (>60 ml/min/1.73 sqM) Glucose (74-99) mg/dL Plasma Lactic Acid Kevin 3.6 H* (0.7-2.0) mmol/L Calcium (8.4-10.2) mg/dL Magnesium (1.6-2.3) mg/dL Total Bilirubin (0.2-1.3) mg/dL AST (14-36) U/L ALT (4-34) U/L Alkaline Phosphatase (38-126) U/L Creatine Kinase (30-135) U/L Total Protein (6.3-8.2) g/dL Albumin (3.5-5.0) g/dL Blood Type O Negative Blood Type Recheck No Previous Record Bld Type Recheck Status CABO Indicated Antibody Screen NEGATIVE Spec Expiration Date 07/02/20202303 Disposition Clinical Impression: Fall, Femur fracture, right Disposition: ADMITTED IP TO THIS [facility] Condition: Stable Is patient prescribed a controlled substance at d/c from ED?: No Referrals: Rodolfo Landry MD [Primary Care Provider] - 1-2 days Decision to Admit Reason: Admit from EC Decision Date: 06/29/20 Decision Time: 13:46
[2020-06-29 12:22] LABS: Basophils % (A) 0 %; Eosinophils % (A) 0 %; HGB 11.7 gm/dL (11.4-16.0); Lymphocytes # (A) 1.2 k/uL (1.0-4.8); Lymphocytes % (A) 13 %; MCH 32.5 pg (25.0-35.0); MCHC 33.4 g/dL (31.0-37.0); MCV 97.6 fL (80.0-100.0); Macrocytosis Slight; Mean Platelet Volume 10.2; Monocytes # (A) 0.6 k/uL (0-1.0); Monocytes % (A) 7 %; Neutrophils # (A) 7.1 k/uL (1.3-7.7); Neutrophils % (A) 79 %; Platelet Count 149 k/uL (150-450); RBC 3.59 m/uL (3.80-5.40); RDW 15.8 % (11.5-15.5)
[2020-06-29 12:34] LABS: Albumin 3.5 g/dL (3.5-5.0); Calcium 9.1 mg/dL (8.4-10.2); Potassium 4.3 mmol/L (3.5-5.1); Total Bilirubin 0.8 mg/dL (0.2-1.3); Total Protein 6.4 g/dL (6.3-8.2)
[2020-06-29 12:38] LABS: Prothrombin Time 10.5 sec (9.0-12.0)
[2020-06-29 12:39] LABS: Partial Thromboplastin Time 21.9 sec (22.0-30.0)
--- NOTE | 2020-06-29 12:43 | CT ---
EXAMINATION TYPE: CT brain ej khan DATE OF EXAM: 06/29/2020 COMPARISON: 03/13/2019 HISTORY: Fall CT DLP: 1258.9 mGycm Automated exposure control for dose reduction was used. TECHNIQUE: CT scan of the head and cervical spine are performed without contrast. FINDINGS: The ventricles, basal cisterns and sulci over the convexities are within normal limits for the patient's age. There is diffuse decreased density in the periventricular white matter consistent with chronic ischem ic demyelination. There is an area of decreased density involving the cortex and subcortical white ma tter in the right posterior temporal lobe which was not seen previously but appears to represent a ruby bacute to remote infarct. There is no acute intra or extra-axial or hemorrhage. The posterior fossa is grossly normal. The intraorbital contents appear normal and symmetric. Visualized paranasal sinuses and mastoid air c ells are well aerated. Cervical spine is visualized in its entirety from C1 through upper thoracic levels and demonstrates s atisfactory alignment without evidence of acute fracture or dislocation. Prevertebral soft tissue ap pears within normal limits. The C1-C2 articulation is unremarkable. There is moderate to marked deg enerative disc disease at the C5-6 and C6-7 levels and mild degenerative disc disease at the C4-5 lev el IMPRESSION: 1. There is no acute fracture or dislocation evident in the cervical spine. 2. No acute intracranial hemorrhage, mass effect, or midline shift is seen. 3. 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 4. 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
[2020-06-29] MEDS ORDERED: HYDROmorphone 0.5 MG/0.5 ML SYRINGE IVP STA (12:50)
--- NOTE | 2020-06-29 13:05 | XR ---
EXAMINATION TYPE: XR chest 1V portable DATE OF EXAM: 06/29/2020 COMPARISON: 05/13/2018 HISTORY: Fall TECHNIQUE: Single frontal view of the chest is obtained. FINDINGS: There is mild interstitial prominence and prominence of the pulmonary vasculature the upper lung zones. In combination with prominence of the heart size findings may indicate mild CHF. There is no pleural effusion or pneumothorax. The osseous structures are grossly intact. IMPRESSION: Findings possibly indicate mild CHF and clinical correlation follow-up is recommended.
[2020-06-29] MEDS ORDERED: SODIUM CHLORIDE 0.9% 1,000 ML IV STA (13:10)
--- NOTE | 2020-06-29 13:10 | XR ---
EXAMINATION TYPE: XR Hip RT and AP Pelvis DATE OF EXAM: 06/29/2020 COMPARISON: None HISTORY: Trauma TECHNIQUE: A single AP view of the pelvis is obtained. Two views of the right hip are obtained. FINDINGS: There is no acute fracture/dislocation evident in the pelvis. The hip and sacroiliac join ts appear symmetric and unremarkable. The overlying soft tissue appears unremarkable. There is an oblique spiral fracture of the proximal shaft of the right femur. There is no hip disloca tion. There is osteophytic change of both hips with moderate joint space narrowing. IMPRESSION: 1. No evidence of pelvic fracture. 2. Markedly displaced oblique fracture of the proximal shaft of the right femur. 3. Moderate osteophytic change of both hips but there is no evidence of hip dislocation or intra-julia cular hip fracture..
[2020-06-29] MEDS ORDERED: hydrALAZINE HCL 20 MG/ML 1 ML VIAL IVP STA (13:30)
[2020-06-29] MEDS ORDERED: ONDANSETRON 4 MG/2 ML VIAL IVP PRN (13:30)
[2020-06-29] MEDS ORDERED: MORPHINE SULFATE 2 MG/ML SYRINGE IVP PRN (13:30)
--- NOTE | 2020-06-29 13:37 | P.CONS ---
History of Present Illness - Reason for Consult Consult date: 06/29/20 Medical management - Chief Complaint Right hip pain - History of Present Illness This is a 89-year-old female with past medical history noted below significant for essential hypertension, hyperlipidemia, and rheumatoid arthritis that presented to the emergency room after she was found on her kitchen floor by her daughter this morning. Patient states alone in a condo and usually talk to her mother every morning. Her mother called her 2 or 3 times this morning with no response so she went and checked on her and found her laying on the floor in the kitchen. Patient was awake and alert. She reported that she slipped out of the chair last night and apparently stayed on the floor all night. Patient was having pain involving her right lower extremity and x-ray showed a displaced fracture of the proximal shaft of the right femur. Computed tomography scan of the head and cervical spine showed no acute findings. Patient and her daughter told me that patient is usually fairly active and is able to walk around with no difficulty. She is also able to climb stairs with assistance. Patient denies any chest pain or dizziness last night. Apparently she had a mechanical fall and was too weak to get up. Patient denies any chest pain at this time. No orthopnea. No known underlying diabetes or chronic kidney disease. Review of Systems Review of system: 14 points review of systems were obtained and were negative except to what were mentioned in the HPI. Past Medical History Past Medical History: Hypertension Additional Past Medical History / Comment(s): skin cancer on nose- removed History of Any Multi-Drug Resistant Organisms: None Reported Past Surgical History: Orthopedic Surgery Past Psychological History: No Psychological Hx Reported Smoking Status: Never smoker Past Alcohol Use History: None Reported Past Drug Use History: None Reported Medications and Allergies Home Medications Medication Instructions Recorded Confirmed Type Cephalexin [Keflex] 500 mg PO Q6HR #28 cap 03/13/19 Rx Ibuprofen 600 mg PO TID #20 tablet 03/13/19 Rx Nitrofurantoin Monohyd/M-Cryst 100 mg PO Q12HR #10 cap 03/17/20 Rx [Macrobid] Allergies Allergy/AdvReac Type Severity Reaction Status Date / Time aspirin Allergy Abdominal Verified 06/29/20 13:19 Pain Physical Exam Vitals: Vital Signs Temp Pulse Resp BP Pulse Ox 06/29/20 13:13 70 15 201/69 98 06/29/20 11:44 98.1 F 69 16 223/88 96 Intake and Output 06/28/20 06/29/20 06/29/20 22:59 06:59 14:59 Other: Weight 81.647 kg General: The patient is awake and alert, in no distress Eye: there is normal conjunctiva bilaterally. Neck: The neck is supple, there is no JVD. Cardiovascular: Normal S1-S2, no S3-S4, no murmurs. Respiratory: Lungs clear to auscultation bilaterally Gastrointestinal: Abdomen is soft, nontender Musculoskeletal: There is no pedal edema. Neurological:. Speech is normal. Skin: Skin is warm and dry Results CBC & Chem 7: 06/29/20 12:04 06/29/20 12:04 Labs: Abnormal Lab Results - Last 24 Hours (Table) 06/29/20 06/29/20 06/29/20 Range/Units 12:04 12:04 12:04 RBC 3.59 L (3.80-5.40) m/uL RDW 15.8 H (11.5-15.5) % Plt Count 149 L (150-450) k/uL APTT 21.9 L (22.0-30.0) sec Chloride 108 H (98-107) mmol/L BUN 20 H (7-17) mg/dL Glucose 196 H (74-99) mg/dL Plasma Lactic Acid Kevin (0.7-2.0) mmol/L 06/29/20 Range/Units 12:04 RBC (3.80-5.40) m/uL RDW (11.5-15.5) % Plt Count (150-450) k/uL APTT (22.0-30.0) sec Chloride (98-107) mmol/L BUN (7-17) mg/dL Glucose (74-99) mg/dL Plasma Lactic Acid Kevin 3.6 H* (0.7-2.0) mmol/L Assessment and Plan Assessment: This is a 89-year-old female was brought into the emergency room with a chief complaint of right lower extremity pain after she was found on her kitchen floor this morning. Patient was evaluated in the ER and admitted to the hospital for further management of her medical problems noted below. 1. Right femoral fracture, seen and evaluated by orthopedic. Plan for possible surgery in the morning. 2. Medical clearance, patient appears to be at an acceptable risk according to RCRI score to proceed with low to moderate risk orthopedic surgery. I would work on optimizing her blood pressure today. Check CPK to rule out severe rha bdomyolysis. 3. Hypertensive emergency, secondary to patient missing her home medications this morning and right femoral pain. I would give the patient 1 time dose of IV hydralazine 10 mg now and start her on Norvasc 5 mg daily. Her home medications are not known as of now until her daughter bring a list. 4. Chronic medical problems: Hyperlipidemia and rheumatoid arthritis 5. DVT prophylaxis with subcu heparin Today, I reviewed her medication list and lab work results. Twelve-lead EKG showed normal sinus rhythm. I would give final medical clearance later on today or early tomorrow morning depends on her BNP and CPK level as well as blood pressure. Thank you very much for the consultation. I will continue to follow up on the patient closely with you.
[2020-06-29] MEDS ORDERED: NALOXONE 0.4 MG/ML 1 ML VIAL IV PRN (13:40)
[2020-06-29] MEDS: SODIUM CHLORIDE 0.9% 1,000 ML IV SCH (14:07)
[2020-06-29 14:25] LABS: Appearance,Urine Clear (Clear); Bilirubin,Urine Negative (Negative); Blood,Urine Trace (Negative); Color,Urine Yellow; Glucose,Urine (UA) Negative (Negative); Ketones,Urine Negative (Negative); Leukocyte Esterase,Urine Negative (Negative); Mucus,Urine Rare /hpf; Nitrite,Urine Negative (Negative); Protein,Urine Trace (Negative); RBC,Urine 8 /hpf (0-5); Specific Gravity,Urine 1.015 (1.001-1.035); Squamous Epithelial Cell,Urine 2 /hpf (0-4); Urobilinogen,Urine <2.0 mg/dL (<2.0); WBC,Urine 3 /hpf (0-5)
[2020-06-29] MEDS: amLODIPine 5 MG TAB PO SCH (15:07)
[2020-06-29] MEDS ORDERED: ONDANSETRON 4 MG/2 ML VIAL IVP STA (15:23)
--- NOTE | 2020-06-29 20:54 | P.HPOR ---
History of Present Illness H&P Date: 06/29/20 Chief Complaint: Right lower extremity pain with right femur fracture Patient is a very pleasant 89-year-old female who is a home ambulator with a cane or walker who presented to the emergency room after being found on her floor by her daughter. She denied the floor overnight for over 14 hours. She does not remember specific fall. She was unable to get up due to pain at her right leg. She does not know if she blacked out or loss consciousness. She denies falling. She denies any other problems with her leg prior to this. She says that she normally walks around the house with a cane or walker. She does not drive. She lives by herself. Her daughter helps her with meals and cleaning. In the emergency room patient was found to have a femoral shaft fracture. She is neurologically intact. She is not having any other specific symptoms with pain in other areas. She was found to have significant hypertension with her systolic over 200. Currently she remains in bed comfortable as long as she is holding her leg still. She denies any headaches or shortness of breath. She denies any fevers chills. She denies any antecedent pain. She denies any nausea or vomiting or recent illness. Review of Systems As stated per HPI. She denies any prior problems with her leg. She is normally a hole in later with a walker or a cane. She does not drive. She denies any fevers chills. She denies any numbness daily. She denies any changes in bowel bladder function. She denies any chest pain or shortness of breath. She denies any specific fall. She says that she decided to sit down on the floor in the kitchen but she is unsure why. She says she couldn't get up because of the pain. Past Medical History Past Medical History: Hypertension, Rheumatoid Arthritis (RA) Additional Past Medical History / Comment(s): skin cancer on nose- removed History of Any Multi-Drug Resistant Organisms: None Reported Past Surgical History: Orthopedic Surgery Additional Past Surgical History / Comment(s): left knee surgery 2017 Past Psychological History: No Psychological Hx Reported Smoking Status: Never smoker Past Alcohol Use History: None Reported Past Drug Use History: None Reported - Past Family History Mother Family Medical History: CVA/TIA Father Family Medical History: Myocardial Infarction ([place]) Medications and Allergies Home Medications Medication Instructions Recorded Confirmed Type Escitalopram [Lexapro] 5 mg PO DAILY 06/29/20 06/29/20 History Ezetimibe [Zetia] 10 mg PO DAILY 06/29/20 06/29/20 History Metoprolol Tartrate [Lopressor] 50 mg PO BID 06/29/20 06/29/20 History Valsartan [Diovan] 320 mg PO DAILY 06/29/20 06/29/20 History Allergies Allergy/AdvReac Type Severity Reaction Status Date / Time aspirin Allergy Abdominal Verified 06/29/20 13:19 Pain Physical Examination Osteopathic Statement: *. No significant issues noted on an osteopathic struc tural exam other than those noted in the History and Physical/Consult. - C Spine: dermatomal strength & reflexes bilateral Shoulder strength: flexion: 5/5 (She has full active range of motion at her neck and upper extremities with 5 over 5 strength) - Fracture right femur Location of fracture: At her right thigh she has significant tenderness. There is some swelling Appearance: other (Her leg is shortened and externally rotated on the right. Her foot is pink and warm. Her compartments are soft. She has great tenderness and pain with any motion at her right leg. She has sustained dorsal flexion plantar flexion her toes. Capillary refill less than 2 seconds. Her other extremi) Distal extremity neurovascularly intact: Yes (Neurovascularly intact in bilateral upper and lower extremities. ) Results - Labs Labs: Abnormal Lab Results - Last 24 Hours (Table) 06/29/20 06/29/20 06/29/20 Range/Units 12:04 12:04 12:04 RBC 3.59 L (3.80-5.40) m/uL RDW 15.8 H (11.5-15.5) % Plt Count 149 L (150-450) k/uL APTT 21.9 L (22.0-30.0) sec Chloride 108 H (98-107) mmol/L BUN 20 H (7-17) mg/dL Glucose 196 H (74-99) mg/dL Plasma Lactic Acid Kevin (0.7-2.0) mmol/L Urine Protein (Negative) Urine Blood (Negative) Urine RBC (0-5) /hpf Urine Mucus (None) /hpf 03/13/21 03/13/21 Range/Units 12:04 14:06 RBC (3.80-5.40) m/uL RDW (11.5-15.5) % Plt Count (150-450) k/uL APTT (22.0-30.0) sec Chloride (98-107) mmol/L BUN (7-17) mg/dL Glucose (74-99) mg/dL Plasma Lactic Acid Kevin 3.6 H* (0.7-2.0) mmol/L Urine Protein Trace H (Negative) Urine Blood Trace H (Negative) Urine RBC 8 H (0-5) /hpf Urine Mucus Rare H (None) /hpf H & H 06/29/20 Range/Units 12:04 Hgb 11.7 (11.4-16.0) gm/dL Hct 35.0 (34.0-46.0) % Coagulation 06/29/20 Range/Units 12:04 INR 1.0 (<1.2) Result Diagrams: 06/29/20 12:04 06/29/20 12:04 - Diagnostic results Hip x-ray: report reviewed, image reviewed (Images of her pelvis and right femur show a subtrochanteric long oblique reverse obliquity femur shaft fracture with angulation and displacement) Assessment and Plan Assessment: Acute right femur shaft fracture, subtrochanteric reverse obliquity neurovascular intact Right lower extremity pain due to femur fracture Uncertain incident of events leading to the fracture but likely fall Prolonged immobilization on her kitchen floor over 14 hours before she was found Plan: Acute right femur shaft fracture, subtrochanteric reverse obliquity neurovascular intact Right lower extremity pain due to femur fracture Uncertain incident of events leading to the fracture but likely fall Prolonged immobilization on her kitchen floor over 14 hours before she was found The patient has acute right femur shaft fracture which is neurologically intact and vascularly intact. She is unable to mobilize and her best course of action would be to pursue surgical stabilization to allow her to mobilize again. I t hink that she could have benefit with intramedullary rodding of her right femur fracture. I discussed this with her at length. I discussed the risks, patient alternatives and benefits with the risks including but not limited to the risk of bleeding risk of infection risk and need for further surgery risk of decreased loss of motion loss of function loss of ambulation Marley status. Loss of independence as well as the fact that surgery may not alleviate her symptoms was explained. We discussed the risks of surgery including the possibility of . Answered her questions to the best my ability. She answers appropriately and seems to respond appropriately and will sign informed consent. We will plan for surgical intervention tomorrow. She has been seen by medicine and will likely be able to be cleared. She had prolonged immobilization and her labs seem to be okay thus far as well as her organ functions. She will likely need extended rehab post hospitalization. She says that she did not fall and did not have any antecedent pain. We will be sure to send some of the reamings from her surgery of her femur to the pathologist for further evaluation in case there is some occult issue. She'll be nothing by mouth after midnight tonight for plans for surgery on Wednesday.
[2020-06-29] MEDS: HEPARIN SODIUM,PORCINE 5,000 UNIT/ML 1 ML VIAL SQ SCH (23:28)
[2020-06-30] MEDS: SODIUM CHLORIDE 0.9% 1,000 ML IV SCH ×2 (05:27→17:28)
[2020-06-30] MEDS: amLODIPine 5 MG TAB PO SCH (08:37)
[2020-06-30] MEDS: HEPARIN SODIUM,PORCINE 5,000 UNIT/ML 1 ML VIAL SQ SCH ×2 (08:37→20:01)
--- NOTE | 2020-06-30 08:47 | P.PN ---
Subjective Progress Note Date: 06/30/20 Patient is doing fairly well today. Her pain is well controlled. No acute events overnight reported by nursing staff. Objective - Vital Signs Vital signs: Vital Signs Temp 98.1 F 06/30/20 01:18 Pulse 80 06/30/20 01:18 Resp 14 06/30/20 01:18 BP 124/57 06/30/20 01:18 Pulse Ox 97 06/30/20 01:18 Intake & Output 06/29/20 06/30/20 06/30/20 17:59 06:59 18:59 Intake Total Output Total Balance Weight Intake: Oral Output: Urine Other: Voiding Method - Exam General: The patient is awake and alert, in no distress Eye: there is normal conjunctiva bilaterally. Neck: The neck is supple, there is no JVD. Cardiovascular: Normal S1-S2, no S3-S4, no murmurs. Respiratory: Lungs clear to auscultation bilaterally Gastrointestinal: Abdomen is soft, nontender Musculoskeletal: There is no pedal edema. Neurological:. Speech is normal. Skin: Skin is warm and dry - Labs CBC & Chem 7: 06/29/20 12:04 06/29/20 12:04 Labs: Abnormal Lab Results - Last 24 Hours (Table) 06/29/20 06/29/20 06/29/20 Range/Units 12:04 12:04 12:04 RBC 3.59 L (3.80-5.40) m/uL RDW 15.8 H (11.5-15.5) % Plt Count 149 L (150-450) k/uL APTT 21.9 L (22.0-30.0) sec Chloride 108 H (98-107) mmol/L BUN 20 H (7-17) mg/dL Glucose 196 H (74-99) mg/dL Plasma Lactic Acid Kevin (0.7-2.0) mmol/L CK-MB (CK-2) (0.0-2.4) ng/mL Urine Protein (Negative) Urine Blood (Negative) Urine RBC (0-5) /hpf Urine Mucus (None) /hpf 06/29/20 06/29/20 06/29/20 Range/Units 12:04 14:06 23:05 RBC (3.80-5.40) m/uL RDW (11.5-15.5) % Plt Count (150-450) k/uL APTT (22.0-30.0) sec Chloride (98-107) mmol/L BUN (7-17) mg/dL Glucose (74-99) mg/dL Plasma Lactic Acid Kevin 3.6 H* (0.7-2.0) mmol/L CK-MB (CK-2) 3.9 H (0.0-2.4) ng/mL Urine Protein Trace H (Negative) Urine Blood Trace H (Negative) Urine RBC 8 H (0-5) /hpf Urine Mucus Rare H (None) /hpf Assessment and Plan Assessment: This is a 89-year-old female was brought into the emergency room with a chief complaint of right lower extremity pain after she was found on her kitchen floor this morning. Patient was evaluated in the ER and admitted to the hospital for further management of her medical problems noted below. 1. Right femoral fracture, seen and evaluated by orthopedic. Plan surgical repair today 2. Medical clearance, patient appears to be at an acceptable risk according to RCRI score to proceed with low to moderate risk orthopedic surgery. 3. Hypertensive emergency, secondary to patient missing her home medications this morning and right femoral pain. 4. Essential hypertension, resume home medications with metoprolol and valsartan 5. Chronic medical problems: Hyperlipidemia and rheumatoid arthritis 6. DVT prophylaxis with subcu heparin Today, I reviewed her medication list and lab work results. CPK and BNP within normal/acceptable range. Patient is medically cleared to proceed with surgery. I would continue to follow up on her closely with you.
[2020-06-30] MEDS: METOPROLOL TARTRATE 50 MG TAB PO SCH ×2 (09:30→20:01)
[2020-06-30] MEDS: ESCITALOPRAM 5 MG TAB PO SCH (09:31)
[2020-06-30] MEDS: EZETIMIBE 10 MG TAB PO SCH (09:31)
[2020-06-30] MEDS ORDERED: LACTATED RINGERS 1,000 ML IV ONE ×2 (12:37→15:16)
[2020-06-30] MEDS ORDERED: MIDAZOLAM 2 MG/2 ML VIAL ONE (13:43)
[2020-06-30] MEDS ORDERED: PHENYLEPHRINE-0.9% NACL SYG 1,000 MCG/10 ML SYRINGE ONE (13:43)
[2020-06-30] MEDS ORDERED: KETAMINE 10 MG/ML 20 ML VIAL ONE (13:43)
[2020-06-30] MEDS ORDERED: ceFAZolin 1,000 MG in SODIUM CHLORIDE 0.9% 1,000 ML IRRIGATION ONE (14:08)
[2020-06-30] MEDS ORDERED: NALOXONE 0.4 MG/ML 1 ML VIAL IV PRN (15:44)
--- NOTE | 2020-06-30 15:54 | P.OP ---
Date of Procedure: 06/30/20 Preoperative Diagnosis: Right femur subtrochanteric reverse obliquity comminuted acute femur fracture, displaced and neurovascularly intact Postoperative Diagnosis: Same Anesthesia: spinal Pathology: other (Right femur reamings sent to pathology) Disposition: PACU Description of Procedure: Preoperative diagnosis: Right femur subtrochanteric reverse obliquity comminuted acute femur fracture, displaced and neurovascularly intact Postoperative diagnosis: Right femur subtrochanteric reverse obliquity comminuted acute femur fracture, displaced and neurovascularly intact Procedure: placement of intramedullary femoral jerri for internal fixation of right femur fracture Use of fluoroscopic guidance Closed reduction Surgeon: Dr. Marizol Kemp.: Baljeet Cruz who is present that the entire the case persistence during positioning dissection exposure placement of hardware and closure Anesthesia: spinal per Dr. Gregg Estimated blood loss: approximately 100 mL Components implanted: [employer] long right femoral jerri measuring 10 x 38 with lag screws to the femoral head and distal locking screw Disposition: To recovery room in good stable condition Operative indications The patient sustained a injury and suffered a hip fracture at the some trochanteric proximal shaftrea of her femur which was displaced and angulated and comminuted with a reverse obliquity type pattern . she is unsure of the specific nature of the incident but she says she was in her kitchen and found herself on the ground with severe pain at her right leg and was unable to get up. She spent the night on her kitchen floor over 14 hours and was found in the morning by her daughter was brought to the emergency room was found to have a right femoral shaft fracture. We were involved in the case in regard to his hip fracture. After evaluation it was determined that they would be a candidate for hip internal fixation and stabilization via surgical intervention. This would give them the best chance of mobilization and ambulation. We discussed the range of treatment options from conservative to surgical. They elected proceed with surgical intervention. We answered their questions to the best of our ability healing which they can understand. They signed an informed consent. Operative summary After obtaining informed consent evaluation by anesthesia, preoperative evaluation and clearance for medical service, the patient was identified and prepped Pinedo area and the surgical site was marked. There brought to the operating room where the given appropriate anesthesia by the anesthesia department in standard fashion without any complications. Once the anesthesia was established we were able to position the patient. The patient was placed on a fracture table with a well-padded perineal post. The operative side was placed in a foot aguilar stirrup which was well-padded well molded and placed in gentle in-line traction. The nonoperative leg was placed in a padded stirrup. C-arm was brought in and we performed a closed reduction technique at the hip. We are able to get good alignment good position of the proximal femur shaft s ubtrochanteric comminuted fracture with gentle reduction techniques and traction utilizing the fracture table. Once patient was well positioned lower extremity was prepped and draped in normal standard sterile fashion. An appropriate keystone protocol and timeout was completed and were able to proceed with surgery. He started point just proximal to the greater trochanter was established and a median incision approximately 2 inches in length approximately to the greater trochanter. I dissected down through the fascia and I was able to expose the tip of the greater trochanter. A sharp starting hole was established at the tip of the greater trochanter near the junction of the anterior and middle third. Positioning was confirmed with C-arm guidance. I was able to start the awl into the bone and then use a guidepin at the starting point establish down to the level of the lesser trochanter at the intramedullary space. I then used a starting reamer for the greater trochanter placed over the guidepin and reamed down appropriately under C-arm guidance. I was unable to place a guidepin into the intramedullary aspect of the femur and then reamed appropriately to the appropriate length. The positioning was confirmed on C-arm guidance. and then did sequential reaming with over the guidepin. It was somewhat difficult to get the guidepin into position but we're able get excellent alignment and position of the fracture with guidepin intact and then we sequentially reamed over the guidepin to 11.5 mm. With the femur appropriately reamed I then chose the appropriate size intramed ullary jerri which was connected to the appropriate jig. The jig was checked for alignment. The area was copiously irrigated and suctioned dry and we're able place the jerri at intramedullary space through the starting hole appropriately. It was seated down for appropriate position to align the leg pain into the femoral neck and head. A second incision was established at the site for the placement of the lag screw area and the guide was established at the lateral aspect of the femur and a guidepin was drilled into the femoral neck and head and near center center position. With this appropriate alignment and position where a reamer over the guidepin making sure not to penetrate the articular surface. The position was confirmed on C-arm guidance in AP and lateral positions. With this established we were able to place the appropriate size lag screw after measuring. Lag screw was placed into the femoral neck and head good alignment good position with excellent bony purchase. It was appropriately aligned and we placed a locking screw through the jerri appropriately and checked that the position was established. I was able to drill and place the compression screw immediately adjacent and inferior to the lag screw which gave good compression and fixation at the proximal femur. With the area in good position able place a distal locking screw. We utilized thefreehand technique with the C-arm through a separate incision was made at the skin. the distal locking screw hole was established after being drilled through the femur and distal locking hole of the intramedullary jerri. It was measured appropriately and a distal locking screw was placed in good alignment and good position with excellent bony purchase. The position was checked to make sure it was through the appropriate hole in the intramedullary jerri. With this established we're able to remove the jig completely from the jerri and final images were taken which showed excellent alignment and position of the hardware and the fracture. With the jerri in place and the fracture stable, although the incision sites were copiously irrigated and suctioned dry. Good hemostasis was maintained. Deep fascial layers were closed with #1 Vicryl. Subcu tissue was closed with 2-0 Vicryl. Subcuticular tissues closed with 3-0 Vicryl. Was are cleaned and dried with dressed with Mastisol and Steri-Strips Telfa for a force and tape. Drapes were broken down, the hip was held in stable position with the post being removed safely once the positioning was stabilized. The patient was then transferred back to their hospital bed being careful to maintain the hip and C- spine alignment and airway. Once stable to patient was transferred back to the postanesthesia care unit to be readmitted for pain control and DVT prophylaxis medical management and monitoring and mobilization we will continue follow patient closely throughout their postoperative course.
[2020-06-30 23:17] LABS: Basophils # (A) 0.03 X 10*3/uL (0.00-0.10); Basophils % (A) 0.3 %; Eosinophils # (A) 0.04 X 10*3/uL (0.04-0.35); Eosinophils % (A) 0.4 %; HCT 27.8 % (37.2-46.3); HGB 8.7 g/dL (12.0-15.0); Lymphocytes # (A) 2.02 X 10*3/uL (0.90-5.00); Lymphocytes % (A) 17.7 %; MCH 31.5 pg (27.0-32.0); MCHC 31.3 g/dL (32.0-37.0); MCV 100.7 fL (80.0-97.0); Mean Platelet Volume 13.5 fL (9.5-12.2); Neutrophils # (A) 7.69 X 10*3/uL (1.80-7.70); Neutrophils % (A) 67.2 %; Platelet Count 128 X 10*3/uL (140-440); RBC 2.76 X 10*6/uL (4.10-5.20); RDW 17.1 % (11.5-14.5); WBC 11.42 X 10*3/uL (4.50-10.00)
[2020-07-01] MEDS: HYDROcodone/APAP 5-325MG 1 EACH TAB PO PRN ×4 (04:40→20:14)
--- NOTE | 2020-07-01 08:21 | XR ---
EXAMINATION TYPE: XR femur RT DATE OF EXAM: 06/30/2020 COMPARISON: 06/29/2020 HISTORY: Postop TECHNIQUE: 6 views submitted. FINDINGS: There is postsurgical change which appears in near-anatomic alignment. Resolution artifact limits the exam. Previous fracture suggested. IMPRESSION: Postoperative change
--- NOTE | 2020-07-01 08:22 | FL ---
EXAMINATION TYPE: FL guidance operating room DATE OF EXAM: 06/30/2020 HISTORY: Fluoroscopy time 2 minutes and 45 seconds of fluoroscopy provided. IMPRESSION: 1. Fluoroscopy time.
[2020-07-01] MEDS: METOPROLOL TARTRATE 50 MG TAB PO SCH ×2 (08:49→20:16)
[2020-07-01] MEDS: HEPARIN SODIUM,PORCINE 5,000 UNIT/ML 1 ML VIAL SQ SCH ×2 (08:50→20:16)
[2020-07-01] MEDS: EZETIMIBE 10 MG TAB PO SCH (08:51)
[2020-07-01] MEDS: ESCITALOPRAM 5 MG TAB PO SCH (08:51)
[2020-07-01] MEDS: VALSARTAN 160 MG TAB PO SCH (08:51)
[2020-07-01] MEDS: SODIUM CHLORIDE 0.9% 1,000 ML IV SCH (08:53)
--- NOTE | 2020-07-01 11:51 | P.PN ---
Progress Note - Text Progress Note Date: 07/01/20 Orthopedics: History of present illness: Patient is a very pleasant 89-year-old female who is seen and examined the bedside for follow-up evaluation in regards to her right hip and lower extremity. She is status post right intramedullary femoral jerri placement with internal fixation for her right femur fracture. Patient states she has some soreness at the surgical sites but her pain is much better controlled postoperatively. She is currently sitting in a bedside chair. Her Pinedo catheter remains intact. She is been able to eat without difficulty. Her pain is well-controlled. She has no new complaints at bedside. She states discharge planning to a rehabilitation facility has been discussed with her daughter. She continues to be seen and examined by medicine. She is currently on heparin for anticoagulation per medicine. Physical Exam Intramedullary [place] for Intertrochanteric Fracture: Status post surgical day number 1 Patient is examined sitting in a bedside chair Patient is awake and alert, and oriented 3 Vital signs stable Good chest excursion with deep inspiration and expiration Abdomen soft nontender No signs or symptoms of DVT; no calf pain Lower extremity cuffs in place bilaterally Pinedo catheter intact There are 3 dressings at the right hip; the most proximal and most distal dressings of the right hip are clean, dry, and intact; no erythema, purulence, or signs of infection The middle dressing at the right hip is sealed but saturated with blood No significant pain with palpation over the surgical sites Full range of motion of ankles bilaterally Dorsiflexion, plantarflexion, and extensor hallucis longus positive sustained bilaterally Neurovascularly intact bilateral lower extremities Capillary refill less than 2 seconds bilateral lower extremities Assessment: Status post right intramedullary nail fixation for right midshaft femur fracture Status post fall Hypertension Hyperlipidemia Rheumatoid arthritis Plan: 1. Patient to remain nonweightbearing on the right lower extremity; patient may work with physical therapy to increase mobility and ambulation 2. Keep dressing over the right hip clean, dry, and intact; when patient is transferred back to the bed and has been discussed with nursing to remove the middle dressing over the right hip and apply a new dressing with nonstick Telfa and Tegaderm 3. Discontinue Pinedo catheter when patient is able to increase mobility and ambulation 4. Continue pain control with oral [place] and/or Tylenol and/or morphine as needed for pain control 5. Continue with anticoagulation therapy with heparin as managed by medicine 6. Medicine to continue following the patient for her other medical diagnoses 7. We'll continue to follow the patient closely; depending on the patient's progress, we may plan for discharge as early as tomorrow, 07/02/2020, to a rehabilitation facility; discharged to a rehabilitation facility has been discussed with case management 8. Patient can follow-up with Baljeet Davalos PA-C or Dr. Lm Fontana at [facility] in 2-3 weeks following discharge
--- NOTE | 2020-07-01 13:55 | P.PN ---
Subjective Progress Note Date: 07/01/20 Patient was up in the chair when I saw her this morning. She does not have any specific complaints or concerns. Her pain is well controlled. No acute events overnight reported by nursing staff. Objective - Vital Signs Vital signs: Vital Signs Temp 98.2 F 07/01/20 07:32 Pulse 68 07/01/20 07:32 Resp 18 07/01/20 07:32 BP 120/55 07/01/20 07:32 Pulse Ox 97 07/01/20 07:32 Intake & Output 06/30/20 07/01/20 07/01/20 18:59 06:59 18:59 Intake Total 1251 Output Total 350 700 Balance 901 -700 Intake: IV 1251 Output: Urine 300 700 Estimated Blood Loss 50 Other: Voiding Method Indwelling Catheter Indwelling Catheter Indwelling Catheter - Exam General: The patient is awake and alert, in no distress Eye: there is normal conjunctiva bilaterally. Neck: The neck is supple, there is no JVD. Cardiovascular: Normal S1-S2, no S3-S4, no murmurs. Respiratory: Lungs clear to auscultation bilaterally Gastrointestinal: Abdomen is soft, nontender Musculoskeletal: There is no pedal edema. Neurological:. Speech is normal. Skin: Skin is warm and dry - Labs CBC & Chem 7: 06/30/20 16:24 06/29/20 12:04 Labs: Abnormal Lab Results - Last 24 Hours (Table) 06/30/20 Range/Units 16:24 WBC 11.42 H (4.50-10.00) X 10*3/uL RBC 2.76 L (4.10-5.20) X 10*6/uL Hgb 8.7 L (12.0-15.0) g/dL Hct 27.8 L (37.2-46.3) % MCV 100.7 H (80.0-97.0) fL MCHC 31.3 L (32.0-37.0) g/dL RDW 17.1 H (11.5-14.5) % Plt Count 128 L (140-440) X 10*3/uL Plt Count Comment DECREASED A MPV 13.5 H (9.5-12.2) fL Monocytes # 1.60 H (0.20-1.00) X 10*3/uL Assessment and Plan Assessment: This is a 89-year-old female was brought into the emergency room with a chief complaint of right lower extremity pain after she was found on her kitchen floor this morning. Patient was evaluated in the ER and admitted to the hospital for further management of her medical problems noted below. 1. Right femoral fracture, postoperative day #1 status post right intramedu llary nail fixation, postoperative care, pain control, DVT prophylaxis per primary team 2. Hypertensive emergency, on presentation now resolved. secondary to patient missing her home medications this morning and right femoral pain. 3. Essential hypertension, blood pressure well-controlled with home medications: metoprolol and valsartan 4. Chronic medical problems: Hyperlipidemia and rheumatoid arthritis 5. DVT prophylaxis with subcu heparin Today, I reviewed her medication list and lab work results. Plan for subacute rehab when ready for discharge by primary team.
--- NOTE | 2020-07-01 18:20 | XR ---
Right femur. HISTORY: Fall. COMPARISON: None. TECHNIQUE: R views the right femur were obtained. There is a markedly displaced spiral fracture of the proximal shaft of the right femur. The fracture appears to involve the lesser trochanter as well. There is no radiopaque foreign body. There are vascular calcifications involving the superficial femo ral artery. IMPRESSION: Displaced fracture of the proximal shaft of the right femur.
[2020-07-02] MEDS: HEPARIN SODIUM,PORCINE 5,000 UNIT/ML 1 ML VIAL SQ SCH ×2 (08:09→19:22)
[2020-07-02] MEDS: VALSARTAN 160 MG TAB PO SCH (08:09)
[2020-07-02] MEDS: METOPROLOL TARTRATE 50 MG TAB PO SCH ×2 (08:09→19:23)
[2020-07-02] MEDS: HYDROcodone/APAP 5-325MG 1 EACH TAB PO PRN ×2 (08:10→19:23)
[2020-07-02] MEDS: EZETIMIBE 10 MG TAB PO SCH (08:10)
[2020-07-02] MEDS: ESCITALOPRAM 5 MG TAB PO SCH (08:10)
--- NOTE | 2020-07-02 08:55 | P.PN ---
Progress Note - Text Progress Note Date: 07/02/20 Orthopedics: History of present illness: Patient is a very pleasant 89-year-old female who is seen and examined the bedside for follow-up evaluation in regards to her right hip and lower extremity. She is status post right intramedullary femoral jerri placement with internal fixation for her right femur fracture. Patient states she has some soreness at the surgical sites but her pain is much better controlled postoperatively. She is also confused and states she did not know she had surgery. She is currently sitting in bed. Her Pinedo catheter was discontinued and she was switched over to an external catheter. Nursing states she did not have much urine output overnight. They're planning for a bladder scan. She is been able to eat without difficulty. Her pain is well-controlled. She does have some inconsistent pain with palpation of the right lower extremity. Sometimes she has pain with palpation of the foot and sometimes she does not. She has no new complaints at bedside. She states discharge planning to a rehabilitation facility has been discussed with her daughter previously. She continues to be seen and examined by medicine. She is currently on heparin for anticoagulation per medicine. Recent labs have not been drawn. Physical Exam Intramedullary Rodding for Intertrochanteric Fracture: Status post surgical day number 2 Patient is examined sitting in in bed Patient is awake and alert, and oriented but seems somewhat confused Vital signs stable Good chest excursion with deep inspiration and expiration Abdomen soft nontender No signs or symptoms of DVT; no calf pain Lower extremity cuffs in place bilaterally External catheter intact There are 3 dressings at the right hip; the most proximal and most distal dressings of the right hip are clean, dry, and intact; no erythema, purulence, or signs of infection The middle dressing at the right hip has been changed and only has light drainage since being change and is now dry No significant pain with palpation over the surgical sites Some inconsistent pain with palpation over the right foot; initial pain with palpation and that no pain with palpation Full range of motion of ankles bilaterally Dorsiflexion, plantarflexion, and extensor hallucis longus positive sustained bilaterally Neurovascularly intact bilateral lower extremities Capillary refill less than 2 seconds bilateral lower extremities Assessment: Status post right intramedullary nail fixation for right midshaft femur fracture Status post fall Hypertension Hyperlipidemia Rheumatoid arthritis Plan: 1. Patient to remain nonweightbearing on the right lower extremity; patient may work with physical therapy to increase mobility and ambulation 2. Keep dressings over the right hip clean, dry, and intact; dressings remain dry with the next 72 hours, may shower without dressing intact 3. Pinedo catheter has been discontinued; external catheter in place without significant urinary output; bladder scan is pending 4. Continue pain control with oral [place] and/or Tylenol and/or morphine as needed for pain control 5. Continue with anticoagulation therapy with heparin as managed by medicine 6. Medicine to continue following the patient for her other medical diagnoses; patient has not had recent labs drawn. We will plan to order CBC and CMP 7. We'll continue to follow the patient closely; depending on the patient's progress, we may plan for discharge as early as tomorrow, 07/03/2020, to a rehabilitation facility; discharged to a rehabilitation facility has been discussed with case management 8. Patient can follow-up with Baljeet Davalos PA-C or Dr. Lm Fontana at [facility] in 2-3 weeks following discharge
[2020-07-02 09:48] LABS: African American GFR (CKD) 69 (>60 ml/min/1.73 sqM); Anion Gap 2 mmol/L; Blood Urea Nitrogen 20 mg/dL (7-17); Calcium 8.3 mg/dL (8.4-10.2); Carbon Dioxide 26 mmol/L (22-30); Chloride 110 mmol/L (98-107); Glucose 105 mg/dL (74-99); Non-African American GFR(CKD) 60 (>60 ml/min/1.73 sqM); Potassium 4.3 mmol/L (3.5-5.1); Sodium 138 mmol/L (137-145)
[2020-07-02 09:54] LABS: Basophils % (A) 1 %; Eosinophils # (A) 0.3 k/uL (0-0.7); Eosinophils % (A) 5 %; HCT 25.3 % (34.0-46.0); Lymphocytes # (A) 1.6 k/uL (1.0-4.8); Lymphocytes % (A) 25 %; MCH 32.3 pg (25.0-35.0); MCHC 32.9 g/dL (31.0-37.0); MCV 98.1 fL (80.0-100.0); Macrocytosis Slight; Mean Platelet Volume 10.1; Monocytes # (A) 0.6 k/uL (0-1.0); Monocytes % (A) 9 %; Neutrophils # (A) 3.9 k/uL (1.3-7.7); Neutrophils % (A) 59 %; Platelet Count 129 k/uL (150-450); RBC 2.58 m/uL (3.80-5.40); RDW 15.8 % (11.5-15.5); WBC 6.6 k/uL (3.8-10.6)
[2020-07-02 10:00] LABS: HGB 8.3 gm/dL (11.4-16.0)
[2020-07-02 10:42] LABS: Basophils # (A) 0.03 X 10*3/uL (0.00-0.10); Basophils % (A) 0.4 %; Eosinophils # (A) 0.32 X 10*3/uL (0.04-0.35); Eosinophils % (A) 4.7 %; HCT 23.9 % (37.2-46.3); HGB 7.6 g/dL (12.0-15.0); Lymphocytes # (A) 2.31 X 10*3/uL (0.90-5.00); Lymphocytes % (A) 34.2 %; MCH 31.8 pg (27.0-32.0); MCHC 31.8 g/dL (32.0-37.0); Mean Platelet Volume 13.2 fL (9.5-12.2); Monocytes # (A) 1.01 X 10*3/uL (0.20-1.00); Monocytes % (A) 14.9 %; Neutrophils # (A) 3.06 X 10*3/uL (1.80-7.70); Neutrophils % (A) 45.4 %; Platelet Count 132 X 10*3/uL (140-440); RBC 2.39 X 10*6/uL (4.10-5.20); RDW 16.6 % (11.5-14.5); WBC 6.76 X 10*3/uL (4.50-10.00)
[2020-07-02] MEDS: SENNOSIDES 8.6 MG TAB PO SCH (11:47)
[2020-07-02] MEDS: FERROUS SULFATE 325 MG TAB PO SCH (11:47)
[2020-07-02] MEDS: ACETAMINOPHEN TAB 325 MG TAB PO PRN (13:42)
[2020-07-02] MEDS ORDERED: SODIUM CHLORIDE 0.9% 500 ML 500 ML IV ONE (15:20)
--- NOTE | 2020-07-02 15:30 | P.PN ---
Subjective Progress Note Date: 07/02/20 (delayed charting seen at 1015) Principal diagnosis: hip fracture Patient is an 89 yo CF with a hx of HTN, HLD, and rheumatoid arthritis who presented to the emergency department after a fall and was found to have a displaced oblique fracture of the right femur. CXR with no acute process, CT head and neck showed no acute fracture dislocation of the cervical spine with no acute intracranial process. She was subsequently admitted to orthopedics and we are consulted for medical management. She was noted to have a slightly low hemoglobin which was felt to be secondary to acute blood loss. Her platelets did decrease likely secondary to consumption. She continues to do well throughout her hospital stay. Patient seen and examined at bedside. She reports her pain is well-controlled. She denies any nausea, vomiting, lightheadedness, dizziness, or shortness of breath. She has never had issues with anemia in the past and does not believe she has taken iron previously. General: Nontoxic no distress, appears at stated age Derm: warm, dry Head: atraumatic, normocephalic, symmetric Eyes: EOMI, no lid lag, anicteric sclera Mouth: no lip lesion, mucus membranes moist Cardiovascular: S1S2 reg, no murmur, positive posterior tibial pulse bilateral, Lungs: Decreased breath sounds bilateral, no rhonchi, no rales , no accessory muscle use Abdominal: soft, nontender to palpation, no guarding, no appreciable organomegaly Ext: no gross muscle atrophy, no edema, no contractures Neuro: CN II-XI grossly intact, no focal neuro deficits Psych: Alert, oriented, appropriate affect 89-year-old female status post right hip fracture with IM nailing area and management per orthopedic services. Acute blood loss anemia -Anticipated outcome -Follow CBC -Start oral iron therapy Thrombocytopenia -Suspect consumptive -No intervention required at this point in time -Follow CBC in 1 week Hypertension -Emergency on arrival and now well-controlled likely secondary to pain and missing home medications. -Continue with metoprolol and valsartan -Follow blood pressures Decreased urine output -Suspect secondary to decreased oral intake -500 mL bolus and monitor urine output Dyslipidemia -Statin Rheumatoid arthritis -Outpatient follow-up DVT prophylaxis: Heparin Discussed with: patient, nursing Anticipated discharge: in AM Anticipated discharge place: [facility] A total of 20 minutes was spent on the care of this complex patient more than 50% of the time was spent in counseling and care coordination. Objective - Vital Signs Vital signs: Vital Signs Temp 97.8 F 07/02/20 12:43 Pulse 91 07/02/20 12:43 Resp 15 07/02/20 12:43 BP 116/53 07/02/20 12:43 Pulse Ox 91 L 07/02/20 12:43 Intake & Output 07/01/20 07/02/20 07/02/20 18:59 06:59 18:59 Output Total 150 Balance -150 Output: Urine 150 Other: Voiding Method Indwelling Catheter External Catheter External Catheter - Labs CBC & Chem 7: 07/02/20 09:03 07/02/20 09:31 Labs: Abnormal Lab Results - Last 24 Hours (Table) 07/02/20 07/02/20 07/02/20 Range/Units 05:24 09:03 09:31 RBC 2.39 L 2.58 L (4.10-5.20) X 10*6/uL Hgb 7.6 L 8.3 L D (12.0-15.0) g/dL Hct 23.9 L 25.3 L (37.2-46.3) % MCV 100.0 H (80.0-97.0) fL MCHC 31.8 L (32.0-37.0) g/dL RDW 16.6 H 15.8 H (11.5-14.5) % Plt Count 132 L 129 L (140-440) X 10*3/uL Plt Count Comment DECREASED A MPV 13.2 H (9.5-12.2) fL Monocytes # 1.01 H (0.20-1.00) X 10*3/uL Chloride 110 H (98-107) mmol/L BUN 20 H (7-17) mg/dL Glucose 105 H (74-99) mg/dL Calcium 8.3 L (8.4-10.2) mg/dL
[2020-07-03] MEDS: ACETAMINOPHEN TAB 325 MG TAB PO PRN ×2 (00:42→13:21)
--- NOTE | 2020-07-03 08:20 | P.PN ---
Subjective Progress Note Date: 07/03/20 Principal diagnosis: hip fracture Patient is an 89 yo CF with a hx of HTN, HLD, and rheumatoid arthritis who presented to the emergency department after a fall and was found to have a displaced oblique fracture of the right femur. CXR with no acute process, CT head and neck showed no acute fracture dislocation of the cervical spine with no acute intracranial process. She was subsequently admitted to orthopedics and we are consulted for medical management. She was noted to have a slightly low hemoglobin which was felt to be secondary to acute blood loss. Her platelets did decrease likely secondary to consumption. She continues to do well throughout her hospital stay. Decreased urine output on 07/02 that improved with IV 500 cc bolus. Patient seen and examined at bedside. Pain is doing oakhy until you press or move her hip. No chest pain, SOB, nausea, or vomiting. General: Nontoxic no distress, appears at stated age Derm: warm, dry Head: atraumatic, normocephalic, symmetric Eyes: EOMI, no lid lag, anicteric sclera Mouth: no lip lesion, mucus membranes moist Cardiovascular: S1S2 reg, no murmur, positive posterior tibial pulse bilateral, Lungs: Decreased breath sounds bilateral, no rhonchi, no rales , no accessory muscle use Abdominal: soft, nontender to palpation, no guarding, no appreciable organomegaly Ext: no gross muscle atrophy, no edema, no contractures, dressing no soak through on right hip Neuro: CN II-XI grossly intact, no focal neuro deficits Psych: Alert, oriented to place and situation, appropriate affect 89-year-old female status post right hip fracture with IM nailing area and management per orthopedic services. Acute blood loss anemia -Anticipated outcome -Follow CBC -Oral iron therapy X 30 days, and the recheck CBC in 2 days Decreased urine output resolved - added to discharge instruction to increase oral intake. Thrombocytopenia -Suspect consumptive -No intervention required at this point in time -Follow CBC in 1 week Hypertension -Emergency on arrival and now well-controlled likely secondary to pain and missing home medications. -Continue with metoprolol and valsartan -Follow blood pressures Dyslipidemia -Statin Rheumatoid arthritis -Outpatient follow-up Medically optimized for discharge at the discretion of ortho. Has external cath only which can be stopped on discharge. DVT prophylaxis: Heparin Discussed with: patient, nursing Anticipated discharge:today Anticipated discharge place: [facility] A total of 20 minutes was spent on the care of this complex patient more than 50% of the time was spent in counseling and care coordination. Objective - Vital Signs Vital signs: Vital Signs Temp 97.9 F 07/03/20 06:30 Pulse 79 07/03/20 06:30 Resp 13 07/03/20 06:30 BP 139/65 07/03/20 06:30 Pulse Ox 93 L 07/03/20 07:27 Intake & Output 07/02/20 07/03/20 07/03/20 18:59 06:59 18:59 Output Total 50 Balance -50 Output: Urine 50 Other: Voiding Method External Catheter External Catheter - Labs CBC & Chem 7: 07/02/20 09:03 07/02/20 09:31 Labs: Abnormal Lab Results - Last 24 Hours (Table) 07/02/20 07/02/20 07/02/20 Range/Units 05:24 09:03 09:31 RBC 2.39 L 2.58 L (4.10-5.20) X 10*6/uL Hgb 7.6 L 8.3 L D (12.0-15.0) g/dL Hct 23.9 L 25.3 L (37.2-46.3) % MCV 100.0 H (80.0-97.0) fL MCHC 31.8 L (32.0-37.0) g/dL RDW 16.6 H 15.8 H (11.5-14.5) % Plt Count 132 L 129 L (140-440) X 10*3/uL Plt Count Comment DECREASED A MPV 13.2 H (9.5-12.2) fL Monocytes # 1.01 H (0.20-1.00) X 10*3/uL Chloride 110 H (98-107) mmol/L BUN 20 H (7-17) mg/dL Glucose 105 H (74-99) mg/dL Calcium 8.3 L (8.4-10.2) mg/dL
[2020-07-03] MEDS: HEPARIN SODIUM,PORCINE 5,000 UNIT/ML 1 ML VIAL SQ SCH (09:27)
[2020-07-03] MEDS: ESCITALOPRAM 5 MG TAB PO SCH (09:28)
[2020-07-03] MEDS: SENNOSIDES 8.6 MG TAB PO SCH (09:28)
[2020-07-03] MEDS: EZETIMIBE 10 MG TAB PO SCH (09:28)
[2020-07-03] MEDS: METOPROLOL TARTRATE 50 MG TAB PO SCH (09:31)
[2020-07-03] MEDS: VALSARTAN 160 MG TAB PO SCH (09:38)
[2020-07-03] MEDS: SODIUM CHLORIDE 0.9% 250 ML IV SCH ×5 (10:15→11:05)
--- NOTE | 2020-07-03 11:53 | P.DS ---
Providers Date of admission: 06/29/20 13:40 Expected date of discharge: 07/03/20 Attending physician: Pete Fontana Consults: 06/29/20 13:41 Consult Physician Urgent Consulting Provider: Fabio Santo Consult Reason/Comments: Preoperative clearance Do you want consulting provider notified?: Already Contacted Primary care physician: Rodolfo Landry - Discharge Diagnosis(es) (1) Right leg pain Current Visit: Yes Status: Acute (2) Fall Current Visit: Yes Status: Acute (3) Femur fracture, right Current Visit: Yes Status: Acute (4) Hypertension Current Visit: Yes Status: Acute (5) Hyperlipidemia Current Visit: Yes Status: Acute (6) Rheumatoid arthritis Current Visit: Yes Status: Acute Hospital Course: This is a pleasant 89-year-old female who presented with mid shaft femur fracture status post fall. She is admitted for further treatment and evaluation. She underwent a right intramedullary nail fixation for her right midshaft femur fracture on 06/30/2020. She has remained nonweightbearing on the right lower extremity. Her pain has been adequately controlled. She does have some increased pain with palpation and movement of her right lower extremity. She's been eating without difficulty. Her Pinedo catheter was proceeded discontinued. An external catheter was being used but will be discontinued at the time of discharge. Patient has been seen by medicine today who has cleared the patient for discharge. Patient will be discharged to [facility]. He is eating without difficulty. She has no other complaints at the bedside. Patient was cleared preoperatively for surgery by medicine. Patient currently denies any nausea, vomiting, fever, or chills. Patient may shower Optifoam dressing intact. Patient may remove Optifoam dressing in 3 days and shower without a dressing at that time. Patient should refrain from driving until at least after their first follow-up appointment in the office. Patient to remain strict nonweightbearing on the right lower extremity. She is encouraged to work with physical therapy to increase mobility and ambulation. She is encouraged using a walker or other device to aide in ambulation as needed. MAPS has been reviewed today, 07/03/2020. An "Opiod Start Talking" Form has been signed and placed in the patient's chart. A prescription has been written for Tylenol #3, take 1 tablet every 6 hours as needed for pain, dispense #42. Patient's other medical diagnoses include hyperlipidemia, hypertension, and rheumatoid arthritis. Medicine will also plan to complete prescribed patient Eliquis 2.5mg BID, dispense #70. She is also given prescriptions for iron and Senokot. Physical Exam on day of discharge: Status post surgical day number 3 Patient is examined sitting in in bed Patient is awake and alert, and oriented but seems somewhat confused Vital signs stable Good chest excursion with deep inspiration and expiration Abdomen soft nontender No signs or symptoms of DVT; no calf pain Lower extremity cuffs in place bilaterally External catheter intact There are 3 dressings at the right hip; the most proximal and most distal jania ssings of the right hip are clean, dry, and intact; no erythema, purulence, or signs of infection The middle dressing at the right hip has been changed and is clean, dry, and intact; no active drainage Some pain with palpation over the surgical sites Some inconsistent pain with palpation over the right foot; initial pain with palpation and that no pain with palpation Full range of motion of ankles bilaterally Dorsiflexion, plantarflexion, and extensor hallucis longus positive sustained bilaterally Neurovascularly intact bilateral lower extremities Capillary refill less than 2 seconds bilateral lower extremities Procedures: Status post right intramedullary nail fixation for right midshaft femur fracture Patient Condition at Discharge: Stable Plan - Discharge Summary Discharge Rx Participant: Yes New Discharge Prescriptions: New Ferrous Sulfate [Iron (65 MG Elemental)] 325 mg PO W/LUNCH 30 Days tab Sennosides [Senokot] 8.6 mg PO DAILY tab Acetaminophen-Codeine 300-30mg [Tylenol #3] 1 tab PO Q4H PRN #42 tablet PRN Reason: Pain Apixaban [Eliquis] 2.5 mg PO BID #70 tab Continue Valsartan [Diovan] 320 mg PO DAILY Metoprolol Tartrate [Lopressor] 50 mg PO BID Ezetimibe [Zetia] 10 mg PO DAILY Escitalopram [Lexapro] 5 mg PO DAILY Discharge Medication List Escitalopram [Lexapro] 5 mg PO DAILY 06/29/20 [History] Ezetimibe [Zetia] 10 mg PO DAILY 06/29/20 [History] Metoprolol Tartrate [Lopressor] 50 mg PO BID 06/29/20 [History] Valsartan [Diovan] 320 mg PO DAILY 06/29/20 [History] Acetaminophen-Codeine 300-30mg [Tylenol #3] 1 tab PO Q4H PRN #42 tablet 07/03/20 [Rx] Apixaban [Eliquis] 2.5 mg PO BID #70 tab 07/03/20 [Rx] Ferrous Sulfate [Iron (65 MG Elemental)] 325 mg PO W/LUNCH 30 Days tab 07/03/20 [Rx] Sennosides [Senokot] 8.6 mg PO DAILY tab 07/03/20 [Rx] Follow up Appointment(s)/Referral(s): Pete Fontana DO [Doctor of Osteopathic Medicine] - 07/15/20 1:30 pm Rodolfo Landry MD [Primary Care Provider] - 1-2 days Activity/Diet/Wound Care/Special Instructions: 1. Patient to remain nonweightbearing on the right lower extremity 2. Patient is encouraged to work with physical therapy and may use walker or other aid as needed to aid in ambulation 3. Keep dressings over the right hip clean, dry, and intact; patient may shower with dressing is intact 4. If dressings remain dry, patient may shower without dressing is intact over the right hip in 72 hours 5. Take medications as prescribed 6. Patient may apply ice for comfort support over the right hip as needed CBC in 2 days DX: Anemia Provide with an additional 8 oz of water every 6 hours and encourage oral intake Heart healthy diet Discharge Disposition: TRANSFER TO SNF/ECF
[2020-07-03 12:23] VITALS: BP 146/66; PULSE 75; RESP 19; TEMP 98.4
[2020-07-03] MEDS: FERROUS SULFATE 325 MG TAB PO SCH (12:31)
== END 2020-07-03 18:44 | DRG 481 ==
LOC: EC 11:39 → 4SSUR 13:40
PROVIDERS: ADMIT Orthopaedic Surgery Orthopaedic Surgery of the Spine; ATTEND Orthopaedic Surgery Orthopaedic Surgery of the Spine
PROC: 0QS636Z Reposition Right Upper Femur with Intramedullary Internal Fixation Device, Percutaneous Approach (ICD-10-PCS; principal; 2020-06-30 10:13)
DX: S72.21XA Displaced subtrochanteric fracture of right femur, initial encounter for closed fracture (principal); I16.1 Hypertensive emergency; D62 Acute posthemorrhagic anemia; D69.6 Thrombocytopenia, unspecified; M06.9 Rheumatoid arthritis, unspecified; Z20.822 Contact with and (suspected) exposure to COVID-19; E86.0 Dehydration; I10 Essential (primary) hypertension; E78.5 Hyperlipidemia, unspecified; W07.XXXA Fall from chair, initial encounter; Z79.899 Other long term (current) drug therapy; Z98.890 Other specified postprocedural states; Z85.828 Personal history of other malignant neoplasm of skin; Z88.6 Allergy status to analgesic agent; Z82.49 Family history of ischemic heart disease and other diseases of the circulatory system; Z82.3 Family history of stroke
CPT/HCPCS: 36415; 51702; 70450; 71045; 72125; 73502; 80048; 80053; 81001; 82550; 82553; 83605; 83735; 83880; 85025; 85610; 85730; 86850; 86900; 86901; 87635; 88305; 93005; 94760; 96361; 96374; 96375; 99285

== ENCOUNTER 2020-10-18 15:03 | Emergency (ER) | payer MEDICARE, OTHER ==
[2020-10-18 15:10] VITALS: TEMP 98
--- NOTE | 2020-10-18 15:44 | ED ---
Weakness HPI - General Chief complaint: Weakness Stated complaint: Diarrhea, R Arm Pain Time Seen by Provider: 10/18/20 15:14 Source: patient, family Mode of arrival: ambulatory Limitations: no limitations - History of Present Illness Initial comments: 89-year-old female with history of dementia presenting to emergency Department with a chief complaint of headache and weakness. Daughter is also present in the room to answer additional questions. Daughter states the patient lives in [facility] and she receives assistance daily. Patient reports today she was in the bathroom attempting to put her pants on when she lost her footing and went down to the ground. She believes she will fell forward but denies loss of consciousness or significant head injury. However, she does report a headache for the last 3 days. She denies any nausea or vomiting but does report diarrhea over the last 3 days. Patient also reports decreased appetite during the same period. She denies any chest pain or shortness of breath one-sided weakness or paresthesias. Daughter states the patient does not seem to be like herself, she reports this typically occurs whenever she has a UTI. - Related Data Home Medications Medication Instructions Recorded Confirmed Escitalopram [Lexapro] 5 mg PO DAILY 06/29/20 10/18/20 Ezetimibe [Zetia] 10 mg PO DAILY 06/29/20 10/18/20 Metoprolol Tartrate [Lopressor] 50 mg PO BID 06/29/20 10/18/20 Valsartan [Diovan] 320 mg PO DAILY 06/29/20 10/18/20 Cholecalciferol [Vitamin D3 (25 25 mcg PO HS 10/18/20 10/18/20 Mcg = 1000 Iu)] Cyanocobalamin [Vitamin B-12] 500 mcg PO DAILY 10/18/20 10/18/20 [facility] (Unknown 1 dose IV Q56D 10/18/20 10/18/20 Dose) Previous Rx's Medication Instructions Recorded Cephalexin [Keflex] 500 mg PO TID #30 cap 10/18/20 Allergies Allergy/AdvReac Type Severity Reaction Status Date / Time aspirin Allergy Abdominal Verified 10/18/20 17:07 Pain Review of Systems ROS Statement: Those systems with pertinent positive or pertinent negative responses have been documented in the HPI. ROS Other: All systems not noted in ROS Statement are negative. Past Medical History Past Medical History: Hypertension, Rheumatoid Arthritis (RA) Additional Past Medical History / Comment(s): skin cancer on nose- removed History of Any Multi-Drug Resistant Organisms: None Reported Past Surgical History: Orthopedic Surgery Additional Past Surgical History / Comment(s): left knee surgery 2017 Past Psychological History: No Psychological Hx Reported Smoking Status: Never smoker Past Alcohol Use History: None Reported Past Drug Use History: None Reported - Past Family History Mother Family Medical History: CVA/TIA Father Family Medical History: Myocardial Infarction ([place]) General Exam Limitations: no limitations General appearance: alert, in no apparent distress Head exam: Present: atraumatic, normocephalic, normal inspection. Absent: other (Negative Vanessa sign, raccoon eyes, hemotympanum.) Eye exam: Present: normal appearance, PERRL, EOMI Pupils: Present: normal accommodation ENT exam: Present: normal exam, normal oropharynx, mucous membranes moist Neck exam: Present: normal inspection, full ROM. Absent: tenderness, lymphadenopathy Respiratory exam: Present: normal lung sounds bilaterally. Absent: respiratory distress, wheezes, rales Cardiovascular Exam: Present: regular rate, normal rhythm, normal heart sounds. Absent: systolic murmur, diastolic murmur GI/Abdominal exam: Present: soft, tenderness (Left lower quadrant tenderness), normal bowel sounds. Absent: distended, guarding, rebound, rigid Extremities exam: Present: normal inspection, full ROM, tenderness (Right shoulder tenderness), normal capillary refill, other (Palpable DP and PT bilaterally). Absent: pedal edema, joint swelling, calf tenderness Back exam: Present: normal inspection, full ROM. Absent: tenderness, CVA tenderness (R), CVA tenderness (L) Neurological exam: Present: alert, CN II-XII intact Expanded Patient oriented to: Present: person, place Speech: Present: fluid speech Cranial nerves: EOM's Intact: Normal, Gag Reflex: Normal, Tongue Deviation: Normal, Nystagmus: Normal, Facial Sensation: Normal Upper motor neuron: Pronator Drift: Normal Sensory exam: Upper Extremity Light Touch: Normal, Upper Extremity Pin Prick: Normal, Lower Extremity Light Touch: Normal, Lower Extremity Pin Prick: Normal Motor strength exam: RUE: 5, LUE: 5, RLE: 5, LLE: 5 Psychiatric exam: Present: normal affect, normal mood Skin exam: Present: warm, dry, intact, normal color Course Vital Signs 10/18/20 10/18/20 10/18/20 15:06 16:20 18:16 Temperature 98.0 F Pulse Rate 79 74 66 Respiratory 16 18 18 Rate Blood Pressure 137/54 150/98 145/52 O2 Sat by Pulse 94 L 93 L 95 Oximetry EKG Findings - EKG Comments: EKG Findings:: Sinus rhythm. Matriculate rate 77, NJ 142, QRS 86, QTC 407. Medical Decision Making - Medical Decision Making 89-year-old female with history of dementia presenting to emergency Department with a chief complaint of headache and weakness. On physical examination, patient is well-appearing, ao2. Left lower quadrant tenderness. No significant pain in her shoulder. CBC CMP unremarkable. UA positive for nitrates, leukocyte esterase and white blood cells. Urine culture is pending. Medical records reviewed, to most recent urine cultures revealed positive for E. coli and Klebsiella. Patient will be started on Rocephin here and discharged with a 10 day course of Keflex. Return parameters were thoroughly discussed with patient and daughter were understanding and agreeable. Brain computed tomography scan C-spine is unremarkable. CT of abdomen and pelvis shows no acute findings. There is a pleural effusion noted and this was discussed with the patient and the daughter were understanding and agreeable. They would still like to be discharged and will follow up with her primary care physician. Case discussed with physician - Lab Data Result diagrams: 10/18/20 16:09 10/18/20 16:09 Lab Results 10/18/20 10/18/20 10/18/20 Range/Units 16:09 16:09 16:09 WBC 10.2 (3.8-10.6) k/uL RBC 4.40 (3.80-5.40) m/uL Hgb 13.1 (11.4-16.0) gm/dL Hct 39.3 (34.0-46.0) % MCV 89.4 (80.0-100.0) fL MCH 29.9 (25.0-35.0) pg MCHC 33.4 (31.0-37.0) g/dL RDW 16.3 H (11.5-15.5) % Plt Count 229 (150-450) k/uL MPV 9.1 Neutrophils % 75 % Lymphocytes % 11 % Monocytes % 10 % Eosinophils % 1 % Basophils % 1 % Neutrophils # 7.7 (1.3-7.7) k/uL Lymphocytes # 1.1 (1.0-4.8) k/uL Monocytes # 1.1 H (0-1.0) k/uL Eosinophils # 0.1 (0-0.7) k/uL Basophils # 0.1 (0-0.2) k/uL Anisocytosis Slight PT 10.6 (9.0-12.0) sec INR 1.0 (<1.2) APTT 24.7 (22.0-30.0) sec Sodium (137-145) mmol/L Potassium (3.5-5.1) mmol/L Chloride (98-107) mmol/L Carbon Dioxide (22-30) mmol/L Anion Gap mmol/L BUN (7-17) mg/dL Creatinine (0.52-1.04) mg/dL Est GFR (CKD-EPI)AfAm (>60 ml/min/1.73 sqM) Est GFR (CKD-EPI)NonAf (>60 ml/min/1.73 sqM) Glucose (74-99) mg/dL Calcium (8.4-10.2) mg/dL Total Bilirubin (0.2-1.3) mg/dL AST (14-36) U/L ALT (4-34) U/L Alkaline Phosphatase (38-126) U/L Troponin I (0.000-0.034) ng/mL Total Protein (6.3-8.2) g/dL Albumin (3.5-5.0) g/dL Urine Color Yellow Urine Appearance Cloudy H (Clear) Urine pH 6.0 (5.0-8.0) Ur Specific [place] 1.035 (1.001-1.035) Urine Protein 1+ H (Negative) Urine Glucose (UA) Negative (Negative) Urine Ketones Negative (Negative) Urine Blood Small H (Negative) Urine Nitrite Positive H (Negative) Urine Bilirubin Negative (Negative) Urine Urobilinogen <2.0 (<2.0) mg/dL Ur Leukocyte Esterase Large H (Negative) Urine RBC 14 H (0-5) /hpf Urine WBC >182 H (0-5) /hpf Ur Squamous Epith Cells 3 (0-4) /hpf Urine Bacteria Occasional H (None) /hpf Urine Mucus Rare H (None) /hpf 10/18/20 10/18/20 Range/Units 16:09 16:09 WBC (3.8-10.6) k/uL RBC (3.80-5.40) m/uL Hgb (11.4-16.0) gm/dL Hct (34.0-46.0) % MCV (80.0-100.0) fL MCH (25.0-35.0) pg MCHC (31.0-37.0) g/dL RDW (11.5-15.5) % Plt Count (150-450) k/uL MPV Neutrophils % % Lymphocytes % % Monocytes % % Eosinophils % % Basophils % % Neutrophils # (1.3-7.7) k/uL Lymphocytes # (1.0-4.8) k/uL Monocytes # (0-1.0) k/uL Eosinophils # (0-0.7) k/uL Basophils # (0-0.2) k/uL Anisocytosis PT (9.0-12.0) sec INR (<1.2) APTT (22.0-30.0) sec Sodium 135 L (137-145) mmol/L Potassium 3.8 (3.5-5.1) mmol/L Chloride 102 (98-107) mmol/L Carbon Dioxide 26 (22-30) mmol/L Anion Gap 7 mmol/L BUN 19 H (7-17) mg/dL Creatinine 1.01 (0.52-1.04) mg/dL Est GFR (CKD-EPI)AfAm 58 (>60 ml/min/1.73 sqM) Est GFR (CKD-EPI)NonAf 50 (>60 ml/min/1.73 sqM) Glucose 157 H (74-99) mg/dL Calcium 9.4 (8.4-10.2) mg/dL Total Bilirubin 0.8 (0.2-1.3) mg/dL AST 19 (14-36) U/L ALT 9 (4-34) U/L Alkaline Phosphatase 93 (38-126) U/L Troponin I <0.012 (0.000-0.034) ng/mL Total Protein 7.2 (6.3-8.2) g/dL Albumin 3.5 (3.5-5.0) g/dL Urine Color Urine Appearance (Clear) Urine pH (5.0-8.0) Ur Specific [place] (1.001-1.035) Urine Protein (Negative) Urine Glucose (UA) (Negative) Urine Ketones (Negative) Urine Blood (Negative) Urine Nitrite (Negative) Urine Bilirubin (Negative) Urine Urobilinogen (<2.0) mg/dL Ur Leukocyte Esterase (Negative) Urine RBC (0-5) /hpf Urine WBC (0-5) /hpf Ur Squamous Epith Cells (0-4) /hpf Urine Bacteria (None) /hpf Urine Mucus (None) /hpf Disposition Clinical Impression: Diarrhea, Urinary tract infection Disposition: HOME SELF-CARE Condition: Stable Instructions (If sedation given, give patient instructions): Urinary Tract Infection in Women (DC) Additional Instructions: Please return to the Emergency Department if symptoms worsen or any other concerns. Follow with the primary care physician. Take prescribed medication as directed Prescriptions: Cephalexin [Keflex] 500 mg PO TID #30 cap Is patient prescribed a controlled substance at d/c from ED?: No Referrals: Kei Wallace MD [Primary Care Provider] - 1-2 days Time of Disposition: 18:26
[2020-10-18] MEDS: SODIUM CHLORIDE 0.9% 1,000 ML IV STA (16:18)
[2020-10-18 16:19] LABS: Anisocytosis Slight; Basophils # (A) 0.1 k/uL (0-0.2); Basophils % (A) 1 %; Eosinophils # (A) 0.1 k/uL (0-0.7); Eosinophils % (A) 1 %; HCT 39.3 % (34.0-46.0); HGB 13.1 gm/dL (11.4-16.0); Lymphocytes # (A) 1.1 k/uL (1.0-4.8); Lymphocytes % (A) 11 %; MCH 29.9 pg (25.0-35.0); MCHC 33.4 g/dL (31.0-37.0); MCV 89.4 fL (80.0-100.0); Mean Platelet Volume 9.1; Monocytes # (A) 1.1 k/uL (0-1.0); Monocytes % (A) 10 %; Neutrophils # (A) 7.7 k/uL (1.3-7.7); Neutrophils % (A) 75 %; Platelet Count 229 k/uL (150-450); RDW 16.3 % (11.5-15.5); WBC 10.2 k/uL (3.8-10.6)
[2020-10-18 16:21] VITALS: RESP 18
[2020-10-18 16:28] LABS: Partial Thromboplastin Time 24.7 sec (22.0-30.0); Prothrombin Time 10.6 sec (9.0-12.0)
[2020-10-18 16:34] LABS: Albumin 3.5 g/dL (3.5-5.0); Calcium 9.4 mg/dL (8.4-10.2); Potassium 3.8 mmol/L (3.5-5.1); Total Bilirubin 0.8 mg/dL (0.2-1.3); Total Protein 7.2 g/dL (6.3-8.2)
[2020-10-18 17:42] LABS: Appearance,Urine Cloudy (Clear); Bacteria,Urine Occasional /hpf; Bilirubin,Urine Negative (Negative); Blood,Urine Small (Negative); Color,Urine Yellow; Glucose,Urine (UA) Negative (Negative); Ketones,Urine Negative (Negative); Leukocyte Esterase,Urine Large (Negative); Mucus,Urine Rare /hpf; Nitrite,Urine Positive (Negative); Protein,Urine 1+ (Negative); RBC,Urine 14 /hpf (0-5); Specific Gravity,Urine 1.035 (1.001-1.035); Squamous Epithelial Cell,Urine 3 /hpf (0-4); Urobilinogen,Urine <2.0 mg/dL (<2.0); WBC,Urine >182 /hpf (0-5)
--- NOTE | 2020-10-18 18:00 | CT ---
EXAMINATION TYPE: CT brain ej wo con DATE OF EXAM: 10/18/2020 COMPARISON: 11/29/2020 HISTORY: 89-year-old female with headache and neck pain after fall TECHNIQUE: CT scan of the head and cervical spine obtained without IV contrast. Coronal, sagittal and axial refo rmats interpreted. CT DLP: 1400.8 mGycm Automated exposure control for dose reduction was used. FINDINGS: CT head: No evidence of acute intracranial hemorrhage midline shift or mass effect. Posterior fossa is unremar kable. 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 Volume atrophy changes have slightly progressed in the interval. Diffuse white matter and periventricular low-attenuation consistent with chronic microangiopathic dori nges in seen. Scattered low attenuating foci in the bilateral basal ganglia suggesting lacunar infarcts again demon strated. Atherosclerotic calcifications in the internal carotid arteries and vertebrobasilar system are also a gain seen. No acute osseous or intraorbital abnormality. Mild mucosal thickening seen in the paranasal sinuses, no air fluid levels seen in the mastoid air ce lls. No significant soft tissue abnormality. CT cervical spine: No acute fracture or dislocation seen. Cervical lordosis is slightly straightened. Moderate to severe degenerative changes are seen at the craniocervical junction and within the includ ed cervical and upper thoracic spine. Focal calcification in the left posterior side of the spinal canal is again demonstrated may represen t ligamentous calcification. No significant soft tissue swelling. Prevertebral soft tissues are normal in thickness. Parapharyngeal fat is maintained. The airway is symmetric. There is a moderate right-sided pleural effusion and COPD/emphysema changes in the included lung apic es. There is an enlarged mediastinal lymph node in the pretracheal space measuring 1.9 x 1.8 cm in additi on to other enlarged and prominent lymph nodes in the mediastinum which were seen on prior study. Atherosclerotic calcifications are seen in the intrathoracic aorta. Wall thickening is seen in the included esophagus which is also distended. IMPRESSION: 1. NO EVIDENCE OF ACUTE INTRACRANIAL HEMORRHAGE, MIDLINE SHIFT OR MASS EFFECT. 2. NONACUTE FINDINGS IN THE BRAIN WITH INTERVAL PROGRESSION, SEE BODY OF REPORT. 3. NO ACUTE FRACTURE OR DISLOCATION IN THE CERVICAL SPINE WHICH DEMONSTRATES MODERATE TO ADVANCED DEG ENERATIVE CHANGES. 4. MODERATE RIGHT-SIDED PLEURAL EFFUSION. 5. MEDIASTINAL LYMPHADENOPATHY WHICH WAS DEMONSTRATED ON PRIOR STUDY, MALIGNANT CHEST PROCESS CANNOT BE ENTIRELY EXCLUDED.
[2020-10-18] MEDS: cefTRIAXone IN SWFI 1,000 MG/10 ML SYRINGE IVP STA (18:11)
[2020-10-18 18:18] VITALS: BP 145/52; PULSE 66
--- NOTE | 2020-10-18 18:22 | CT ---
EXAMINATION TYPE: CT abdomen pelvis w con DATE OF EXAM: 10/18/2020 HISTORY: 89-year-old female with left lower quadrant abdominal pain CT DLP: 918.5mGycm Automated Exposure Control for Dose Reduction was Utilized. CONTRAST: CT scan of the abdomen and pelvis is performed with IV Contrast, patient injected with 80ml mL of Iso [place] 300. COMPARISON: No prior CT abdomen and pelvis present for comparison. Comparison is made to CT brain and C-spine dated 06/29/2020 FINDINGS: LUNG BASES: There is a moderate-sized right pleural effusion. There is mild pulmonary edema. INCLUDED CARDIAC STRUCTURES: LIVER: No significant abnormality is appreciated. GALLBLADDER : No significant abnormality is appreciated. BILIARY TREE: Extrahepatic biliary ductal dilatation measuring up 7.3 mm is likely normal for the pat ient's age. PANCREAS: Pancreatic atrophy. SPLEEN: No significant abnormality is seen. ADRENALS: 1.3 cm right adrenal nodule. Left adrenal gland unremarkable. KIDNEYS AND URETERS: There are nonobstructing bilateral renal calculi measuring 3-6 mm. Normal bilate ral renal parenchymal enhancement seen with mild bilateral atrophy. There is no hydronephrosis. A few peripelvic cysts noted. URINARY BLADDER: Partially distended. ESOPHAGUS: Included esophagus in the chest is distended. STOMACH: A significant portion of the gastric fundus and body are herniated to the posterior mediasti num. There is a small amount of fluid surrounding the herniated gastric wall and gastric wall thicken ing. SMALL BOWEL: No significant abnormality is seen. LARGE BOWEL: No significant abnormality is seen. APPENDIX: Not definitely identified. HERNIAS: No significant herniation. UTERUS/ADNEXA: Nonvisualized uterus. Unremarkable adnexa. PERITONEUM/MESENTRY: No pneumoperitoneum or ascites. LYMPH NODES: No enlarged retroperitoneal or pelvic lymph nodes are appreciated. MAJOR VASCULAR STRUCTURES: Nonaneurysmal aorta. Unremarkable inferior vena cava. Atherosclerotic calc ifications seen in the included thoracic and abdominal aorta. OSSEOUS STRUCTURES: No aggressive osseous lesion. No acute fracture or dislocation. Grade 1 anterior listhesis of L4 over L5. Multilevel intervertebral space narrowing, disc herniation and facet joint a rthropathy, most severe at L4-5. IMPRESSION: 1. Moderate size right pleural effusion and mild pulmonary edema. 2. Mild extrahepatic biliary ductal dilatation measuring up to 7.3 mm which is likely normal for the patient's age, correlation with bilirubin levels could be of additional benefit if clinically indicat ed. 3. 1.3 cm right adrenal nodule, statistically likely to be on the basis of adenoma, if further evalua tion recommended CT adrenal mass protocol should obtained on nonurgent basis. 4. Nonobstructing bilateral nephrolithiasis measuring up to 6 mm. 5. Significant gastric herniation into the posterior mediastinum with a small amount of fluid around the herniated stomach and gastric wall thickening. Flexion, inflammation or malignancy cannot be enti rely excluded. 6. No pneumoperitoneum, ascites, diverticulosis or evidence of acute diverticulitis. 7. Nonvisualized appendix, no evidence of intra-abdominal or pelvic abscess.
== END 2020-10-18 18:54 | disposition home or self-care (01) ==
LOC: EC 15:03
DX: N39.0 Urinary tract infection, site not specified (principal); R19.7 Diarrhea, unspecified; B96.20 Unspecified Escherichia coli [E. coli] as the cause of diseases classified elsewhere; B96.1 Klebsiella pneumoniae [K. pneumoniae] as the cause of diseases classified elsewhere; R53.1 Weakness; M79.601 Pain in right arm; R51.9 Headache, unspecified; I10 Essential (primary) hypertension; Z88.6 Allergy status to analgesic agent; Z79.899 Other long term (current) drug therapy
CPT/HCPCS: 36415; 93005; 80053; 84484; 85025; 85610; 85730; 81001; 87086; 72125; 70450; 74177; 99285; 96374; 96361; J0696; Q9967; 87077; 87186

== ENCOUNTER 2021-08-01 08:26 | Inpatient (IN) | payer MEDICARE, OTHER ==
--- NOTE | 2021-08-01 08:51 | ED ---
Fall HPI - General Chief Complaint: Fall Stated Complaint: Fall Time Seen by Provider: 08/01/21 08:36 Source: patient, EMS, RN notes reviewed Mode of arrival: EMS - History of Present Illness Initial Comments: This is an 89-year-old female who presents to the emergency department after a fall. She was walking in the hallway at [facility], when the staff heard a thud and found her on the floor. Unsure if she had any LOC or if she fell face first or backwards. Also not sure if she had any dizziness, chest pain, or SOB before the fall. She is not on any blood thinners. Currently complaining of pain in the neck and bilateral legs. Leg pain is primarily in the thighs and hips. She is alert and oriented on examination but is very sleepy. She was given 50mcg of fentanyl by EMS which may be a contributing factor to the sleepiness. Her daughter is at bedside and states that she does have confusion at baseline and it does not seem worse at this time. She uses a walker and her most recent fall was 1 year ago. MD Complaint: fall Fall From: standing Fall Witnessed: no Place Fall Occurred: custodial/SNF Loss of Consciousness: unsure - Related Data Home Medications Medication Instructions Recorded Confirmed Escitalopram [Lexapro] 5 mg PO DAILY 06/29/20 08/01/21 Ezetimibe [Zetia] 10 mg PO DAILY 06/29/20 08/01/21 Metoprolol Tartrate [Lopressor] 50 mg PO BID 06/29/20 08/01/21 Valsartan [Diovan] 320 mg PO DAILY 06/29/20 08/01/21 Cholecalciferol [Vitamin D3 (25 50 mcg PO DAILY 10/18/20 08/01/21 Mcg = 1000 Iu)] Acetaminophen Tab [Tylenol Tab] 500 - 1,000 mg PO Q6H PRN 08/01/21 08/01/21 Artificial Tears-Hypromellose 1 - 2 drops BOTH EYES QID PRN 08/01/21 08/01/21 [Artificial Tear Drops] Cyanocobalamin (Vitamin B-12) 1,000 mcg PO DAILY 08/01/21 08/01/21 [Vitamin B-12] Loperamide HCl [Loperamide] 2 - 4 mg PO QID PRN 08/01/21 08/01/21 Memantine [Namenda] 10 mg PO BID 08/01/21 08/01/21 Nitrofurantoin Monohyd/M-Cryst 100 mg PO Q12H 08/01/21 08/01/21 [Macrobid] Tolterodine ER [Detrol LA] 2 mg PO DAILY 08/01/21 08/01/21 predniSONE 5 mg PO DAILY 08/01/21 08/01/21 Allergies Allergy/AdvReac Type Severity Reaction Status Date / Time aspirin AdvReac Abdominal Verified 08/01/21 11:30 Pain Review of Systems ROS Statement: Those systems with pertinent positive or pertinent negative responses have been documented in the HPI. ROS Other: All systems not noted in ROS Statement are negative. Constitutional: Denies: fever, chills ENT: Denies: ear pain, throat pain Respiratory: Denies: cough, dyspnea Cardiovascular: Denies: chest pain, palpitations Gastrointestinal: Denies: abdominal pain, nausea, vomiting, diarrhea Genitourinary: Denies: urgency, dysuria Musculoskeletal: Reports: other (neck and leg pain) Skin: Denies: rash Past Medical History Past Medical History: Hypertension, Rheumatoid Arthritis (RA) Additional Past Medical History / Comment(s): skin cancer on nose- removed History of Any Multi-Drug Resistant Organisms: None Reported Past Surgical History: Orthopedic Surgery Additional Past Surgical History / Comment(s): left knee surgery 2017 Past Psychological History: No Psychological Hx Reported Smoking Status: Never smoker Past Alcohol Use History: None Reported Past Drug Use History: None Reported - Past Family History Mother Family Medical History: CVA/TIA Father Family Medical History: Myocardial Infarction (NM) General Exam Limitations: no limitations General appearance: alert, other (drowsy) Head exam: Present: atraumatic, normocephalic, normal inspection Respiratory exam: Present: normal lung sounds bilaterally. Absent: respiratory distress, wheezes, rales, rhonchi, stridor Cardiovascular Exam: Present: regular rate, normal rhythm, normal heart sounds. Absent: systolic murmur, diastolic murmur, rubs, gallop, clicks Left Hip exam: Present: external rotation Neurovascular tendon exam: Present: no vascular compromise. Absent: pulse deficit, abnormal cap refill Right Neurovascular tendon exam: Present: no vascular compromise. Absent: pulse deficit, abnormal cap refill Neurological exam: Present: alert, oriented X3 Psychiatric exam: Present: normal affect, normal mood Skin exam: Present: warm, dry, normal color, other (skin tear to the right forearm) Course Vital Signs 08/01/21 08/01/21 08/01/21 08:29 09:57 11:00 Temperature 97.1 F L Pulse Rate 86 93 87 Respiratory 18 18 16 Rate Blood Pressure 184/103 184/103 179/121 O2 Sat by Pulse 91 L 94 L 95 Oximetry Medical Decision Making - Medical Decision Making This is an 89-year-old female who presents to the emergency department after a fall. Will obtain CT of the brain and C-spine, as well as x-ray of the bilateral hips and femurs. Will also check CMP, CBC, troponin, UA, and EKG, given that the circumstances of her fall are unknown. CT head and neck revealed no acute abnormalities. X-ray revealed acute slightly displaced fractures through the left superior and inferior pelvic rami. I contacted orthopedics, who advised a computed tomography scan of the pelvis. She is to be non weight bearing, however this is not a surgical case and they do not need to admit her to orthopedics. EKG revealed new onset atrial fibrillation. Repeat EKG obtained and also revealed atrial fibrillation. Patient has no history of cardiac issues and is not on any blood thinners. Given that she is non weight bearing, she cannot return to [facility] and will need custodial placement for rehabilitation. Patient will be admitted for new-onset atrial fibrillation and custodial placement. UA reveals positive nitrites, patient given 1g of Ceftriaxone in the emergency department. Her daughter requests custodial placement at [facility]. This case was discussed in detail with the attending ED physician. Presentation, findings, and treatment plan discussed in detail as well. - Lab Data Result diagrams: 08/01/21 09:51 08/01/21 09:51 Lab Results 08/01/21 08/01/21 08/01/21 Range/Units 09:51 09:51 09:51 WBC 12.3 H (3.8-10.6) k/uL RBC 4.43 (3.80-5.40) m/uL Hgb 13.4 (11.4-16.0) gm/dL Hct 42.3 (34.0-46.0) % MCV 95.7 (80.0-100.0) fL MCH 30.2 (25.0-35.0) pg MCHC 31.6 (31.0-37.0) g/dL RDW 16.3 H (11.5-15.5) % Plt Count 158 (150-450) k/uL MPV 9.5 Neutrophils % 81 % Lymphocytes % 11 % Monocytes % 5 % Eosinophils % 2 % Basophils % 1 % Neutrophils # 10.0 H (1.3-7.7) k/uL Lymphocytes # 1.3 (1.0-4.8) k/uL Monocytes # 0.6 (0-1.0) k/uL Eosinophils # 0.2 (0-0.7) k/uL Basophils # 0.1 (0-0.2) k/uL Anisocytosis Slight Sodium 140 (137-145) mmol/L Potassium 3.8 (3.5-5.1) mmol/L Chloride 107 (98-107) mmol/L Carbon Dioxide 27 (22-30) mmol/L Anion Gap 6 mmol/L BUN 16 (7-17) mg/dL Creatinine 0.96 (0.52-1.04) mg/dL Est GFR (CKD-EPI)AfAm 61 (>60 ml/min/1.73 sqM) Est GFR (CKD-EPI)NonAf 53 (>60 ml/min/1.73 sqM) Glucose 160 H (74-99) mg/dL Calcium 8.8 (8.4-10.2) mg/dL Total Bilirubin 1.1 (0.2-1.3) mg/dL AST 23 (14-36) U/L ALT 16 (4-34) U/L Alkaline Phosphatase 75 (38-126) U/L Troponin I <0.012 (0.000-0.034) ng/mL Total Protein 6.9 (6.3-8.2) g/dL Albumin 3.2 L (3.5-5.0) g/dL Urine Color Urine Appearance (Clear) Urine pH (5.0-8.0) Ur Specific Kermit (1.001-1.035) Urine Protein (Negative) Urine Glucose (UA) (Negative) Urine Ketones (Negative) Urine Blood (Negative) Urine Nitrite (Negative) Urine Bilirubin (Negative) Urine Urobilinogen (<2.0) mg/dL Ur Leukocyte Esterase (Negative) Urine RBC (0-5) /hpf Urine WBC (0-5) /hpf Ur Squamous Epith Cells (0-4) /hpf Urine Bacteria (None) /hpf Urine Mucus (None) /hpf 08/01/21 Range/Units 10:40 WBC (3.8-10.6) k/uL RBC (3.80-5.40) m/uL Hgb (11.4-16.0) gm/dL Hct (34.0-46.0) % MCV (80.0-100.0) fL MCH (25.0-35.0) pg MCHC (31.0-37.0) g/dL RDW (11.5-15.5) % Plt Count (150-450) k/uL MPV Neutrophils % % Lymphocytes % % Monocytes % % Eosinophils % % Basophils % % Neutrophils # (1.3-7.7) k/uL Lymphocytes # (1.0-4.8) k/uL Monocytes # (0-1.0) k/uL Eosinophils # (0-0.7) k/uL Basophils # (0-0.2) k/uL Anisocytosis Sodium (137-145) mmol/L Potassium (3.5-5.1) mmol/L Chloride (98-107) mmol/L Carbon Dioxide (22-30) mmol/L Anion Gap mmol/L BUN (7-17) mg/dL Creatinine (0.52-1.04) mg/dL Est GFR (CKD-EPI)AfAm (>60 ml/min/1.73 sqM) Est GFR (CKD-EPI)NonAf (>60 ml/min/1.73 sqM) Glucose (74-99) mg/dL Calcium (8.4-10.2) mg/dL Total Bilirubin (0.2-1.3) mg/dL AST (14-36) U/L ALT (4-34) U/L Alkaline Phosphatase (38-126) U/L Troponin I (0.000-0.034) ng/mL Total Protein (6.3-8.2) g/dL Albumin (3.5-5.0) g/dL Urine Color Light Yellow Urine Appearance Cloudy H (Clear) Urine pH 6.5 (5.0-8.0) Ur Specific Kermit 1.012 (1.001-1.035) Urine Protein Negative (Negative) Urine Glucose (UA) Negative (Negative) Urine Ketones Negative (Negative) Urine Blood Negative (Negative) Urine Nitrite Positive H (Negative) Urine Bilirubin Negative (Negative) Urine Urobilinogen <2.0 (<2.0) mg/dL Ur Leukocyte Esterase Moderate H (Negative) Urine RBC 7 H (0-5) /hpf Urine WBC 29 H (0-5) /hpf Ur Squamous Epith Cells 2 (0-4) /hpf Urine Bacteria Many H (None) /hpf Urine Mucus Rare H (None) /hpf - EKG Data Rate: normal EKG Comments: Atrial fibrillation. Ventricular rate 91 bpm, QRS duration 97 ms, QTC 417 ms. - Radiology Data Radiology results: report reviewed, image reviewed Disposition Clinical Impression: Atrial fibrillation with controlled ventricular rate, Closed fracture of left pelvis Disposition: ADMITTED IP TO THIS HOSP
--- NOTE | 2021-08-01 09:17 | CT ---
EXAMINATION TYPE: CT brain cspine wo con DATE OF EXAM: 08/01/2021 COMPARISON: CT brain and cervical spine October 18, 2020 HISTORY: unwitnessed fall with headache and neck pain. CT DLP: 1416.3 mGycm. Automated Exposure Control for Dose Reduction was Utilized. TECHNIQUE: CT scan of the head and cervical spine are performed without contrast. FINDINGS: There is no acute intracranial hemorrhage or midline shift identified. Mild ventricular a nd sulcal prominence. Moderate to severe low-attenuation the deep and periventricular white matter. 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 The calvarium is intact. The globes are in tact and the visualized sinuses are clear. New moderate to large sized acute left parietal scalp moe destiny. Cervical spine is visualized in its entirety from C1 through upper thoracic levels and demonstrates s atisfactory alignment without evidence of acute fracture or dislocation. Prevertebral soft tissue ap pears within normal limits. The C1-C2 articulation is within normal limits on the coronal images. Ve rtebral body heights are maintained. Moderate to severe disc space narrowing C5-C6 level redemonstrat ed. Posterior spur disc complexes efface the anterior thecal sac C3-C4 through C5-C6 levels. Axial im ages redemonstrate multilevel uncovertebral facet degenerative changes bilaterally. Thyroid gland is normal in size. Lung apices show no pneumothorax. There is low dense 2.0 cm prominence along the righ t anterior superior major fissure felt trapped fluid in patient with history of pleural effusions in the past. IMPRESSION: 1. There is no acute fracture or dislocation evident in the cervical spine. 2. No acute intracranial hemorrhage or midline shift is seen. New moderate to large size acute pariet al scalp hematoma.
--- NOTE | 2021-08-01 09:45 | XR ---
EXAMINATION TYPE: XR Hip Bilateral and AP pelvis, XR femur bilateral DATE OF EXAM: 08/01/2021 COMPARISON: NONE HISTORY: Fall injury with pain TECHNIQUE: A single AP view of the pelvis is obtained. Two views of the bilateral hips and femurs are obtained. FINDINGS: Osseous structures are demineralized which is noted to lower radiographic sensitivity. Pat ient is rotated. There are acute displaced fractures through the left superior pelvic ramus laterally near the acetabulum and the left inferior pelvic ramus. Pubic symphysis is intact. Sacroiliac joints show [id number] narrowing bilaterally. Two views bilateral hips and femurs show surgical change throughout the right femur through healed fr acture. No additional fracture clearly identified. Metallic hardware from left knee were plasty is pa rtially imaged. Moderate arterial vascular calcification is seen bilaterally. IMPRESSION: There are acute slightly displaced fractures through the left superior and inferior pelvi c rami.
[2021-08-01 10:09] LABS: Anisocytosis Slight; Basophils # (A) 0.1 k/uL (0-0.2); Basophils % (A) 1 %; Eosinophils # (A) 0.2 k/uL (0-0.7); Eosinophils % (A) 2 %; HCT 42.3 % (34.0-46.0); HGB 13.4 gm/dL (11.4-16.0); Lymphocytes # (A) 1.3 k/uL (1.0-4.8); Lymphocytes % (A) 11 %; MCH 30.2 pg (25.0-35.0); MCHC 31.6 g/dL (31.0-37.0); MCV 95.7 fL (80.0-100.0); Mean Platelet Volume 9.5; Monocytes # (A) 0.6 k/uL (0-1.0); Monocytes % (A) 5 %; Neutrophils % (A) 81 %; Platelet Count 158 k/uL (150-450); RBC 4.43 m/uL (3.80-5.40); RDW 16.3 % (11.5-15.5); WBC 12.3 k/uL (3.8-10.6)
[2021-08-01 10:19] LABS: Albumin 3.2 g/dL (3.5-5.0); Calcium 8.8 mg/dL (8.4-10.2); Potassium 3.8 mmol/L (3.5-5.1); Total Bilirubin 1.1 mg/dL (0.2-1.3); Total Protein 6.9 g/dL (6.3-8.2)
[2021-08-01 11:05] LABS: Appearance,Urine Cloudy (Clear); Bacteria,Urine Many /hpf; Bilirubin,Urine Negative (Negative); Blood,Urine Negative (Negative); Color,Urine Light Yellow; Glucose,Urine (UA) Negative (Negative); Ketones,Urine Negative (Negative); Leukocyte Esterase,Urine Moderate (Negative); Mucus,Urine Rare /hpf; Nitrite,Urine Positive (Negative); PH, Urine 6.5 (5.0-8.0); Protein,Urine Negative (Negative); RBC,Urine 7 /hpf (0-5); Specific Gravity,Urine 1.012 (1.001-1.035); Squamous Epithelial Cell,Urine 2 /hpf (0-4); Urobilinogen,Urine <2.0 mg/dL (<2.0); WBC,Urine 29 /hpf (0-5)
[2021-08-01] MEDS ORDERED: ONDANSETRON 4 MG/2 ML VIAL IVP PRN (11:06)
[2021-08-01] MEDS ORDERED: NALOXONE 0.4 MG/ML 1 ML VIAL IV PRN (11:06)
[2021-08-01] MEDS ORDERED: HYDROmorphone 1 MG/ML 1 ML SYRINGE IVP PRN (11:06)
[2021-08-01] MEDS: HYDROmorphone 0.5 MG/0.5 ML SYRINGE IVP PRN ×2 (11:16→15:49)
--- NOTE | 2021-08-01 11:29 | CT ---
EXAMINATION TYPE: CT pelvis wo con DATE OF EXAM: 08/01/2021 COMPARISON: X-ray 08/01/2021 HISTORY: Fall, pelvic fracture. CT DLP: 398.9 mGycm Automated exposure control for dose reduction was used. FINDINGS: There is a acute mildly displaced fracture involving the left superior and inferior pubic rami. There also appears to be an acute fracture through the anterior column of the acetabulum on the left. Postsurgical change right hip area arthropathy bilateral hips. 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 Pinedo catheter is seen with air in the bladder likely accounting for the air. Atherosclerot ic change of the aorta. Degenerative changes spine. Bilateral sacroiliitis. Grade 1 anterolisthesis L 4 on L5. IMPRESSION: 1. Mildly displaced acute fracture through the left anterior and superior pubic ramus. 2. Mild displaced anterior column left acetabular fracture
[2021-08-01 11:54] LABS: Prothrombin Time 11.2 sec (9.0-12.0)
[2021-08-01] MEDS ORDERED: cefTRIAXone IN SWFI 1,000 MG/10 ML SYRINGE IVP STA (12:05)
[2021-08-01] MEDS ORDERED: ARTIFICIAL TEARS-HYPROMELLOSE DROPS 15 ML BTL BOTH EYES PRN (19:37)
[2021-08-01] MEDS: METOPROLOL TARTRATE 50 MG TAB PO SCH (20:37)
[2021-08-01] MEDS: MEMANTINE 10 MG TAB PO SCH (20:37)
[2021-08-02] MEDS ORDERED: ESCITALOPRAM 5 MG TAB PO SCH (09:00)
[2021-08-02] MEDS: ACETAMINOPHEN TAB 325 MG TAB PO PRN (09:30)
[2021-08-02] MEDS: METOPROLOL TARTRATE 50 MG TAB PO SCH ×2 (09:31→20:19)
[2021-08-02] MEDS: CYANOCOBALAMIN 500 MCG TAB PO SCH (09:31)
[2021-08-02] MEDS: predniSONE 5 MG TAB PO SCH (09:31)
[2021-08-02] MEDS: VALSARTAN 160 MG TAB PO SCH (09:31)
[2021-08-02] MEDS: CHOLECALCIFEROL 25 MCG (1000 IU) TABLET PO SCH (09:31)
[2021-08-02] MEDS: MEMANTINE 10 MG TAB PO SCH (09:31)
[2021-08-02] MEDS: EZETIMIBE 10 MG TAB PO SCH (09:31)
[2021-08-02] MEDS: OXYBUTYNIN XL 5 MG TAB.ER.24 PO SCH (09:31)
[2021-08-02] MEDS: HYDROmorphone 0.5 MG/0.5 ML SYRINGE IVP PRN (13:35)
--- NOTE | 2021-08-02 17:25 | P.HPIM ---
History of Present Illness H&P Date: 08/01/21 Chief Complaint: Fall This is a pleasant 89-year-old patient brought to the ER with a fall. She was in the hallway at [facility] walking with the staff on the third and found her on the floor. Unclear if she fell on her head or face forward. Patient does not remember the circumstances around the same. She had some neck pain. She was given 50 g of fentanyl by the EMS. When she was sleeping the ER. Patient has underlying cognitive impairment. And normally uses a walker. She had a fall about a year ago. Most of this history is from the ER. Patient cannot tell me much about the fall Patient doesn't remember any chest pain or palpitation. No focal weakness. No change in speech Review of systems: GEN.: Tired EYES: None HEENT: Decreased hearing NECK: None RESPIRATORY: None CARDIOVASCULAR: None GASTROINTESTINAL: None GENITOURINARY: None MUSCULOSKELETAL: Joint pains LYMPHATICS: None HEMATOLOGICAL: None PSYCHIATRY: Forgetful NEUROLOGICAL: Does use a walker Past medical history to include: Dementia, hyperlipidemia, hypertension, arthritis, skin cancer removed from the nose Social history: Lives at [facility]. Does use a walker. In close to be used 3 times a day. Able to wash herself and dress herself. Daughter Kimberli is DPOAE. No smoking or alcohol. Family history: CVA/TIA Physical examination: VITAL SIGNS: 97.1, 86, 18, 91% room air, 133/77 GENERAL: BMI 25, laying in bed awake not in distress. EYES: Pupils equal. Conjunctiva normal. HEENT: External appearance of nose and ears normal, oral cavity grossly normal. NECK: JVD not raised; masses not palpable. HEART: First and second heart sounds are normal; no edema. LUNGS: Respiratory rate normal; clear to auscultation. ABDOMEN: Soft, nontender, liver spleen not palpable, no masses palpable. PSYCH: Patient can answer simple questions. Cannot tell the year of [place] MUSCULOSKELETAL:No Clubbing/cyanosis;muscles-grossly intact. Evidence of OA in several joints NEUROLOGICAL: Cranial nerves grossly intact; no facial asymmetry, power and sensation grossly intact. LYMPHATICS: No lymph nodes palpable in the axilla and neck INVESTIGATIONS, reviewed in the clinical context: White count 12.3 hemoglobin 13.4 platelets 158 sodium 140 potassium 3.8 BUN 16 creatinine 0.96 Troponin I less than 0.012 UA positive for leukoesterase WBC EKG tracing personally reviewed by me-atrial fibrillation. Rate 91 Femur/hip pelvic x-ray: Personally reviewed by me. Left superior inferior pubic room I fracture. Previous hardware Assessment and plan: -Fall. Circumstances leading to the same unknown. Not witnessed. It could be from decreased heart rate from atrial fibrillation. Vasovagal as possible. Patient does use a walker at baseline. We'll give the patient on telemetry. Troponin is negative. Denies any chest pain. -Left superior and inferior pubic rami fracture, secondary to fall . Pain control. 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 PTOT. -Persistent atrial fibrillation, rate controlled Telemetry. As patient is in a supervised setting consider anticoagulation. 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 -Essential hypertension Diovan 320 mg daily -Chronic urinary incontinence Detrol LA 2 mg daily. -Hypercholesterolemia Zetia 10 mg daily. -DPOAE: donal gA -DO NOT RESUSCITATE - Fall precautions. PT OT. Consult orthopedic. 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 Past Medical History Past Medical History: Cancer, Dementia, Hyperlipidemia, Hypertension, Memory Imp airment, Rheumatoid Arthritis (RA) Additional Past Medical History / Comment(s): skin cancer on nose- removed History of Any Multi-Drug Resistant Organisms: None Reported Past Surgical History: Joint Replacement, Orthopedic Surgery Additional Past Surgical History / Comment(s): L total knee, R hip fracture/IT nail, R shoulder surgery, skin cancer removal Past Anesthesia/Blood Transfusion Reactions: No Reported Reaction Smoking Status: Never smoker - Past Family History Mother Family Medical History: CVA/TIA Father Family Medical History: Myocardial Infarction ([place]) Medications and Allergies Home Medications Medication Instructions Recorded Confirmed Type Escitalopram [Lexapro] 5 mg PO DAILY 06/29/20 08/01/21 History Ezetimibe [Zetia] 10 mg PO DAILY 06/29/20 08/01/21 History Metoprolol Tartrate [Lopressor] 50 mg PO BID 06/29/20 08/01/21 History Valsartan [Diovan] 320 mg PO DAILY 06/29/20 08/01/21 History Cholecalciferol [Vitamin D3 (25 50 mcg PO DAILY 10/18/20 08/01/21 History Mcg = 1000 Iu)] Acetaminophen Tab [Tylenol Tab] 500 - 1,000 mg PO Q6H PRN 08/01/21 08/01/21 History Artificial Tears-Hypromellose 1 - 2 drops BOTH EYES QID PRN 08/01/21 08/01/21 History [Artificial Tear Drops] Cyanocobalamin (Vitamin B-12) 1,000 mcg PO DAILY 08/01/21 08/01/21 History [Vitamin B-12] Loperamide HCl [Loperamide] 2 - 4 mg PO QID PRN 08/01/21 08/01/21 History Memantine [Namenda] 10 mg PO BID 08/01/21 08/01/21 History Nitrofurantoin Monohyd/M-Cryst 100 mg PO Q12H 08/01/21 08/01/21 History [Macrobid] Tolterodine ER [Detrol LA] 2 mg PO DAILY 08/01/21 08/01/21 History predniSONE 5 mg PO DAILY 08/01/21 08/01/21 History Allergies Allergy/AdvReac Type Severity Reaction Status Date / Time aspirin AdvReac Abdominal Verified 08/01/21 11:30 Pain Physical Exam Vitals: Vital Signs Temp Pulse Pulse Resp BP BP Pulse Ox 08/01/21 15:45 98.1 F 69 18 150/77 95 08/01/21 13:40 98.1 F 89 16 152/69 95 08/01/21 12:49 77 20 133/77 95 08/01/21 11:00 87 16 179/121 95 08/01/21 09:57 93 18 184/103 94 L 08/01/21 08:29 97.1 F L 86 18 184/103 91 L Intake and Output 08/01/21 08/01/21 08/01/21 06:59 14:59 22:59 Intake Total 30 Output Total 300 Balance -270 Intake: Oral 30 Output: Urine 300 Other: Voiding Method Indwelling Catheter Weight 68.039 kg Results CBC & Chem 7: 08/01/21 09:51 08/01/21 09:51 Labs: Abnormal Lab Results - Last 24 Hours (Table) 08/01/21 08/01/21 08/01/21 Range/Units 09:51 09:51 10:40 WBC 12.3 H (3.8-10.6) k/uL RDW 16.3 H (11.5-15.5) % Neutrophils # 10.0 H (1.3-7.7) k/uL Glucose 160 H (74-99) mg/dL Albumin 3.2 L (3.5-5.0) g/dL Urine Appearance Cloudy H (Clear) Urine Nitrite Positive H (Negative) Ur Leukocyte Esterase Moderate H (Negative) Urine RBC 7 H (0-5) /hpf Urine WBC 29 H (0-5) /hpf Urine Bacteria Many H (None) /hpf Urine Mucus Rare H (None) /hpf Thrombosis Risk Factor Assmnt - Choose All That Apply Any of the Below Risk Factors Present?: Yes Each Factor Represents 1 point: Medical pt on bed rest Other Risk Factors: Yes Each Risk Factor Represents 2 Points: Patient confined to bed, Malignancy Each Risk Factor Represents 3 Points: Age 75 years or older Other congenital or acquired thrombophilia - If yes, enter type in comment: No Thrombosis Risk Factor Assessment Total Risk Factor Score: 8 Thrombosis Risk Factor Assessment Level: High Risk
--- NOTE | 2021-08-02 17:30 | P.PN ---
Progress Note - Text Progress Note Date: 08/02/21 Chief Complaint: Fall This is a pleasant 89-year-old patient brought to the ER with a fall. She was in the hallway at [facility] walking with the staff on the third and found her on the floor. Unclear if she fell on her head or face forward. Patient does not remember the circumstances around the same. She had some neck pain. She was given 50 g of fentanyl by the EMS. When she was sleeping the ER. Patient has underlying cognitive impairment. And normally uses a walker. She had a fall about a year ago. Most of this history is from the ER. Patient cannot tell me much about the fall Patient doesn't remember any chest pain or palpitation. No focal weakness. No change in speech August 02: Pain control. DC Dilaudid. Use Ultram when necessary. Tolerating diet. In bed. We'll start the patient on xarelto. Because she's in a supervised setting. Active Medications Acetaminophen (Acetaminophen Tab 325 Mg Tab) 650 mg PO Q6HR PRN PRN Reason: Mild Pain or Fever > 100.5 Last Admin: 08/02/21 09:30 Dose: 650 mg Documented by: Artificial Tears (Artificial Tears-Hypromellose Drops 15 Ml Btl) 1 - 2 drops BOTH EYES QID PRN PRN Reason: Dry Eye(s) Cholecalciferol (Cholecalciferol 25 Mcg (1000 Iu) Tablet) 50 mcg PO DAILY [facility] Last Admin: 08/02/21 09:31 Dose: 50 mcg Documented by: Cyanocobalamin (Cyanocobalamin 500 Mcg Tab) 1,000 mcg PO DAILY [facility] Last Admin: 08/02/21 09:31 Dose: 1,000 mcg Documented by: Cyclobenzaprine HCl (Cyclobenzaprine 5 Mg Tab) 5 mg PO TID PRN PRN Reason: Moderate Pain Ezetimibe (Ezetimibe 10 Mg Tab) 10 mg PO DAILY [facility] Last Admin: 08/02/21 09:31 Dose: 10 mg Documented by: Metoprolol Tartrate (Metoprolol Tartrate 50 Mg Tab) 50 mg PO BID [facility] Last Admin: 08/02/21 09:31 Dose: 50 mg Documented by: Naloxone HCl (Naloxone 0.4 Mg/Ml 1 Ml Vial) 0.2 mg IV Q2M PRN PRN Reason: Opioid Reversal Ondansetron HCl (Ondansetron 4 Mg/2 Ml Vial) 4 mg IVP Q8HR PRN PRN Reason: Nausea And Vomiting Oxybutynin Chloride (Oxybutynin Xl 5 Mg Tab.Er.24) 5 mg PO DAILY [facility] Last Admin: 08/02/21 09:31 Dose: 5 mg Documented by: Prednisone (Prednisone 5 Mg Tab) 5 mg PO DAILY [facility] Last Admin: 08/02/21 09:31 Dose: 5 mg Documented by: Rivaroxaban (Rivaroxaban 10 Mg Tab) 10 mg PO HS [facility]; Protocol Tramadol HCl (Tramadol 50 Mg Tab) 50 mg PO QID PRN PRN Reason: Pain Valsartan (Valsartan 160 Mg Tab) 320 mg PO DAILY [facility] Last Admin: 08/02/21 09:31 Dose: 320 mg Documented by: Past medical history to include: Dementia, hyperlipidemia, hypertension, arthritis, skin cancer removed from the nose Social history: Lives at [facility]. Does use a walker. In close to be used 3 times a day. Able to wash herself and dress herself. Daughter Kimberli is DPOAE. No smoking or alcohol. Family history: CVA/TIA Physical examination: VITAL SIGNS: 98.2, 100, 18, 1 25 x 68, 94% on room air GENERAL: Laying in bed, awake, comfortable EYES: Pupils equal. Conjunctiva normal. HEENT: External appearance of nose and ears normal, oral cavity grossly normal. NECK: JVD not raised; masses not palpable. HEART: First and second heart sounds are normal; no edema. LUNGS: Respiratory rate normal; clear to auscultation. ABDOMEN: Soft, nontender, liver spleen not palpable, no masses palpable. PSYCH: Patient can answer simple questions. Cannot tell the year of the season.l. MUSCULOSKELETAL:No Clubbing/cyanosis;muscles-grossly intact. Evidence of OA in several joints INVESTIGATIONS, reviewed in the clinical context: White count 12.3 hemoglobin 13.4 platelets 158 sodium 140 potassium 3.8 BUN 16 creatinine 0.96 Troponin I less than 0.012 UA positive for leukoesterase WBC EKG tracing personally reviewed by me-atrial fibrillation. Rate 91 Femur/hip pelvic x-ray: Personally reviewed by me. Left superior inferior pubic room I fracture. Previous hardware Assessment and plan: -Fall. Circumstances leading to the same unknown. Not witnessed. It could be from decreased heart rate from atrial fibrillation. Vasovagal as possible. Patient does use a walker at baseline. We'll give the patient on telemetry. Troponin is negative. Denies any chest pain. -Left superior and inferior pubic rami fracture, secondary to fall . Pain control. 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 PTOT. -Persistent atrial fibrillation, rate controlled Telemetry. As patient is in a supervised setting consider anticoagulation. 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 -Essential hypertension Diovan 320 mg daily -Chronic urinary incontinence Detrol LA 2 mg daily. -Hypercholesterolemia Zetia 10 mg daily. -DPOAE: donal Ag -DO NOT RESUSCITATE - Continue current medication treatment plan. Start Keflex. Fall precautions. Started xarelto. 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 PTOT.
[2021-08-02] MEDS: CYCLOBENZAPRINE 5 MG TAB PO PRN (17:50)
[2021-08-02] MEDS: CEPHALEXIN 500 MG CAP PO SCH (17:50)
[2021-08-02] MEDS: RIVAROXABAN 10 MG TAB PO SCH (20:19)
[2021-08-03] MEDS: CEPHALEXIN 500 MG CAP PO SCH ×3 (02:42→17:20)
[2021-08-03] MEDS: ACETAMINOPHEN TAB 325 MG TAB PO PRN (05:55)
[2021-08-03] MEDS: CYCLOBENZAPRINE 5 MG TAB PO PRN (10:32)
[2021-08-03] MEDS: predniSONE 5 MG TAB PO SCH (10:33)
[2021-08-03] MEDS: OXYBUTYNIN XL 5 MG TAB.ER.24 PO SCH (10:33)
[2021-08-03] MEDS: VALSARTAN 160 MG TAB PO SCH (10:33)
[2021-08-03] MEDS: METOPROLOL TARTRATE 50 MG TAB PO SCH ×2 (10:33→21:03)
[2021-08-03] MEDS: CYANOCOBALAMIN 500 MCG TAB PO SCH (10:34)
[2021-08-03] MEDS: EZETIMIBE 10 MG TAB PO SCH (10:34)
[2021-08-03] MEDS: CHOLECALCIFEROL 25 MCG (1000 IU) TABLET PO SCH (10:34)
--- NOTE | 2021-08-03 10:55 | P.PN ---
Progress Note - Text Progress Note Date: 08/03/21 Chief Complaint: Fall This is a pleasant 89-year-old patient brought to the ER with a fall. She was in the hallway at [facility] walking with the staff on the third and found her on the floor. Unclear if she fell on her head or face forward. Patient does not remember the circumstances around the same. She had some neck pain. She was given 50 g of fentanyl by the EMS. When she was sleeping the ER. Patient has underlying cognitive impairment. And normally uses a walker. She had a fall about a year ago. Most of this history is from the ER. Patient cannot tell me much about the fall Patient doesn't remember any chest pain or palpitation. No focal weakness. No change in speech August 02: Pain control. DC Dilaudid. Use Ultram when necessary. Tolerating diet. In bed. We'll start the patient on xarelto. Because she's in a supervised setting. August 03: Oral intake variable. Pain control. PTOT. Awaiting input from orthopedics Active Medications Acetaminophen (Acetaminophen Tab 325 Mg Tab) 650 mg PO Q6HR PRN PRN Reason: Mild Pain or Fever > 100.5 Last Admin: 08/03/21 05:55 Dose: 650 mg Documented by: Artificial Tears (Artificial Tears-Hypromellose Drops 15 Ml Btl) 1 - 2 drops BOTH EYES QID PRN PRN Reason: Dry Eye(s) Cephalexin (Cephalexin 500 Mg Cap) 500 mg PO Q8H [facility]; Protocol Last Admin: 08/03/21 10:33 Dose: 500 mg Documented by: Cholecalciferol (Cholecalciferol 25 Mcg (1000 Iu) Tablet) 50 mcg PO DAILY [facility] Last Admin: 08/03/21 10:34 Dose: 50 mcg Documented by: Cyanocobalamin (Cyanocobalamin 500 Mcg Tab) 1,000 mcg PO DAILY [facility] Last Admin: 08/03/21 10:34 Dose: 1,000 mcg Documented by: Cyclobenzaprine HCl (Cyclobenzaprine 5 Mg Tab) 5 mg PO TID PRN PRN Reason: Moderate Pain Last Admin: 08/03/21 10:32 Dose: 5 mg Documented by: Ezetimibe (Ezetimibe 10 Mg Tab) 10 mg PO DAILY [facility] Last Admin: 08/03/21 10:34 Dose: 10 mg Documented by: Metoprolol Tartrate (Metoprolol Tartrate 50 Mg Tab) 50 mg PO BID [facility] Last Admin: 08/03/21 10:33 Dose: 50 mg Documented by: Naloxone HCl (Naloxone 0.4 Mg/Ml 1 Ml Vial) 0.2 mg IV Q2M PRN PRN Reason: Opioid Reversal Ondansetron HCl (Ondansetron 4 Mg/2 Ml Vial) 4 mg IVP Q8HR PRN PRN Reason: Nausea And Vomiting Oxybutynin Chloride (Oxybutynin Xl 5 Mg Tab.Er.24) 5 mg PO DAILY [facility] Last Admin: 08/03/21 10:33 Dose: 5 mg Documented by: Prednisone (Prednisone 5 Mg Tab) 5 mg PO DAILY [facility] Last Admin: 08/03/21 10:33 Dose: 5 mg Documented by: Rivaroxaban (Rivaroxaban 10 Mg Tab) 10 mg PO HS [facility]; Protocol Last Admin: 08/02/21 20:19 Dose: 10 mg Documented by: Tramadol HCl (Tramadol 50 Mg Tab) 50 mg PO QID PRN PRN Reason: Pain Valsartan (Valsartan 160 Mg Tab) 320 mg PO DAILY [facility] Last Admin: 08/03/21 10:33 Dose: 320 mg Documented by: Past medical history to include: Dementia, hyperlipidemia, hypertension, arthritis, skin cancer removed from the nose Social history: Lives at [facility]. Does use a walker. In close to be used 3 times a day. Able to wash herself and dress herself. Daughter Kimberli is DPOAE. No smoking or alcohol. Family history: CVA/TIA Physical examination: VITAL SIGNS: 98, 85, 16, 131/85, 98% room air GENERAL: Laying in bed, awake, comfortable EYES: Pupils equal. Conjunctiva normal. HEENT: External appearance of nose and ears normal, oral cavity grossly normal. NECK: JVD not raised; masses not palpable. HEART: First and second heart sounds are normal; no edema. LUNGS: Respiratory rate normal; clear to auscultation. ABDOMEN: Soft, nontender, liver spleen not palpable, no masses palpable. PSYCH: Patient can answer simple questions. Cannot tell the year of the season.l. MUSCULOSKELETAL:No Clubbing/cyanosis;muscles-grossly intact. Evidence of OA in several joints INVESTIGATIONS, reviewed in the clinical context: Urine culture: Gram-negative bacilli White count 12.3 hemoglobin 13.4 platelets 158 sodium 140 potassium 3.8 BUN 16 creatinine 0.96 Troponin I less than 0.012 UA positive for leukoesterase WBC EKG tracing personally reviewed by me-atrial fibrillation. Rate 91 Femur/hip pelvic x-ray: Personally reviewed by me. Left superior inferior pubic room I fracture. Previous hardware Assessment and plan: -Fall. Circumstances leading to the same unknown. Not witnessed. It could be from decreased heart rate from atrial fibrillation. Vasovagal as possible. Patient does use a walker at baseline. We'll give the patient on telemetry. Troponin is negative. Denies any chest pain. -Left superior and inferior pubic rami fracture, secondary to fall . Pain control. Consult orthopedic -Acute UTI with possible cystitis, from gram-negative bacilli Continue Keflex -Chronic gait dysfunction uses a walker at baseline Fall precaution. PTOT. -Persistent atrial fibrillation, rate controlled Telemetry. As patient is in a supervised setting consider anticoagulation. 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 -Essential hypertension Diovan 320 mg daily -Chronic urinary incontinence Detrol LA 2 mg daily. -Hypercholesterolemia Zetia 10 mg daily. -DPOAE: donal Ag -DO NOT RESUSCITATE - Continue Keflex. Fall precautions. On xarelto. Pending 2-D echocardiogram. PTOT.
--- NOTE | 2021-08-03 10:55 | P.CNOR ---
History of Present Illness - HPI Consult date: 08/03/21 Consult reason: fracture History of present illness: Patient is a very pleasant 89-year-old female who sustained a fall 2 days ago from a standing height. Apparently she normally ambulates and uses some assistance but had a fall at her left side. She was found have. Janes fractures and we ordered further imaging. She was also found have potential new onset atrial for ablation and was admitted in this regard. She is a limited historian but she is able to answer questions and follow commands. She says that she has a fall she does not remember if she lost consciousness. She says her hip had been hurting on the left side but is not hurting very badly now. She says she has a history of a fall and surgery on the right side. She denies any current chest pains risk of breath. She denies any nausea or vomiting. She says she normally gets around with is difficult to determine how much she is able to mobilize on her own in general. Review of Systems As per HPI. She denies any numbness tingling or weakness in her lower extremities. She denies chest pain shortness breath. She does admit to some neck pain with motion. Past Medical History Past Medical History: Cancer, Dementia, Hyperlipidemia, Hypertension, Memory Impairment, Rheumatoid Arthritis (RA) Additional Past Medical History / Comment(s): skin cancer on nose- removed, history of right intramedullary hip screw at her right History of Any Multi-Drug Resistant Organisms: None Reported Past Surgical History: Joint Replacement, Orthopedic Surgery Additional Past Surgical History / Comment(s): L total knee, R hip fracture/IT nail, R shoulder surgery, skin cancer removal Past Anesthesia/Blood Transfusion Reactions: No Reported Reaction Smoking Status: Never smoker - Past Family History Mother Family Medical History: CVA/TIA Father Family Medical History: Myocardial Infarction ([place]) Medications and Allergies Home Medications Medication Instructions Recorded Confirmed Type Escitalopram [Lexapro] 5 mg PO DAILY 06/29/20 08/01/21 History Ezetimibe [Zetia] 10 mg PO DAILY 06/29/20 08/01/21 History Metoprolol Tartrate [Lopressor] 50 mg PO BID 06/29/20 08/01/21 History Valsartan [Diovan] 320 mg PO DAILY 06/29/20 08/01/21 History Cholecalciferol [Vitamin D3 (25 50 mcg PO DAILY 10/18/20 08/01/21 History Mcg = 1000 Iu)] Acetaminophen Tab [Tylenol Tab] 500 - 1,000 mg PO Q6H PRN 08/01/21 08/01/21 History Artificial Tears-Hypromellose 1 - 2 drops BOTH EYES QID PRN 08/01/21 08/01/21 History [Artificial Tear Drops] Cyanocobalamin (Vitamin B-12) 1,000 mcg PO DAILY 08/01/21 08/01/21 History [Vitamin B-12] Loperamide HCl [Loperamide] 2 - 4 mg PO QID PRN 08/01/21 08/01/21 History Memantine [Namenda] 10 mg PO BID 08/01/21 08/01/21 History Nitrofurantoin Monohyd/M-Cryst 100 mg PO Q12H 08/01/21 08/01/21 History [Macrobid] Tolterodine ER [Detrol LA] 2 mg PO DAILY 08/01/21 08/01/21 History predniSONE 5 mg PO DAILY 08/01/21 08/01/21 History Allergies Allergy/AdvReac Type Severity Reaction Status Date / Time aspirin AdvReac Abdominal Verified 08/01/21 11:30 Pain Physical Examination Osteopathic Statement: *. No significant issues noted on an osteopathic structural exam other than those noted in the History and Physical/Consult. - Hip left Tenderness with palpation: other (She has some diffuse tenderness around her left hip and groin. She has minimal pain with internal/external rotation of her left hip.Nontender. She has sustained dorsal to plantar flexion and EHL. She is actually able to lift her leg up off the bed independently on the left. On the right she jaime) Pain with motion: other (She is able to lift her legs up off the bed independently bilaterally. Her thighs and calves soft nontender. Her abdomen soft nontender. She has some tenderness at her left pelvis. Her upper extremities have good active and passive range of motion. Her neck has some soreness with rotation flexi) - C Spine: dermatomal strength & reflexes left Shoulder strength: flexion: 5/5 (She has some soreness with range of motion of her cervical spine. She is nontender over the midline. She has some paravertebral spasm. There is no crepitus. She has no neurologic deficits in her upper extremities) Results - Labs Labs: Microbiology - Last 24 Hours (Table) 08/01/21 10:40 Urine Culture - Preliminary Urine,Catheterized Gram Neg Bacilli H & H 08/01/21 Range/Units 09:51 Hgb 13.4 (11.4-16.0) gm/dL Hct 42.3 (34.0-46.0) % Coagulation 08/01/21 Range/Units 11:12 INR 1.0 (<1.2) Result Diagrams: 08/01/21 09:51 08/01/21 09:51 - Diagnostic results Hip CT: report reviewed (X-rays and computed tomography scan of the pelvis and left hip are reviewed which show superior and inferior. Rami fracture. There is also a fracture line at the anterior column of the left acetabulum. The column fracture is minimally displaced and the dome of the acetabulum appears to be intact.), image reviewed (There is some compression of the superior pubic rami fracture site. The Walton establish appears intact and the hip was concentric.) Assessment and Plan Assessment: Status post fall. Left hip anterior column of the acetabulum fracture, minimally displaced with concentric femoral acetabular joint Superior and inferior pubic rami fractures Myofascial strain at cervical spine due to follow with disc degeneration C4 5 C5 6 C6 7 Plan: Status post fall. Left hip anterior column of the acetabulum fracture, minimally displaced with concentric femoral acetabular joint Superior and inferior pubic rami fractures Myofascial strain at cervical spine due to follow with disc degeneration C4 5 C5 6 C6 7 In regards to the patient's fractures at her pelvis and acetabulum, I think that these can do well with conservative treatment. The pubic rami fractures will heal well. The intercondylar acetabulum fracture does not have disruption of the cup and is in good alignment and good position. I think she can maintain n onweightbearing status on the left lower extremity and allow this to heal appropriately. She will likely need to be nonweightbearing left lower extremity for 4-6 weeks and will have physical therapy training for this. When she is stable with medicine and her mobilization is okay for her to be discharged home from a orthopedic standpoint for follow-up in approximately 2-3 weeks' time for recheck evaluation and repeat x-rays and continued management. Patient does have some neck pain with motion. Her computed tomography scan does not show any evidence of fracture or dislocation but does show significant disc degeneration C45 C5 6 and C6 7. She is nontender to palpation over the midline and does not seem to have any instability. She's not having any radicular pattern at her upper extremity is. I think should she can be treated conservatively as well. She may have some comfort with a soft collar that she can use as needed for comfort. It is okay for her to mobilize in terms of her cervical spine. We do not plan any surgical intervention and we can continue conservative management with nonweightbearing left lower extremity physical therapy for her pelvic and acetabular fracture. It is okay for [facility] standpoint when she is cleared with medicine
[2021-08-03] MEDS: traMADol 50 MG TAB PO PRN (17:20)
[2021-08-03] MEDS: RIVAROXABAN 10 MG TAB PO SCH (21:03)
[2021-08-04] MEDS: traMADol 50 MG TAB PO PRN (02:31)
[2021-08-04] MEDS: CEPHALEXIN 500 MG CAP PO SCH ×3 (02:31→17:29)
[2021-08-04] MEDS: METOPROLOL TARTRATE 50 MG TAB PO SCH ×2 (08:59→20:49)
[2021-08-04] MEDS: EZETIMIBE 10 MG TAB PO SCH (08:59)
[2021-08-04] MEDS: CYANOCOBALAMIN 500 MCG TAB PO SCH (08:59)
[2021-08-04] MEDS: OXYBUTYNIN XL 5 MG TAB.ER.24 PO SCH (08:59)
[2021-08-04] MEDS: predniSONE 5 MG TAB PO SCH (09:00)
[2021-08-04] MEDS: CHOLECALCIFEROL 25 MCG (1000 IU) TABLET PO SCH (09:00)
[2021-08-04] MEDS: VALSARTAN 160 MG TAB PO SCH (09:00)
--- NOTE | 2021-08-04 10:01 | ECHOF ---
Referral Reason:Atrial fibrillation MEASUREMENTS -------- HEIGHT: 165.1 cm WEIGHT: 68.0 kg BP: 151/79 IVSd: 1.7 cm (0.6 - 1.1) LVIDd: 3.3 cm (3.9 - 5.3) LVPWd: 1.3 cm (0.6 - 1.1) IVSs: 2.2 cm LVIDs: 2.0 cm LVPWs: 1.9 cm LAESV Index (A-L): 43.85 ml/m Ao Diam: 3.0 cm (2.0 - 3.7) AV Cusp: 1.3 cm (1.5 - 2.6) LA Diam: 3.2 cm (2.7 - 3.8) MV EXCURSION: 14.924 mm (> 18.000) MV EF SLOPE: 88 mm/s (70 - 150) EPSS: 1.1 cm AV maxP.20 mmHg AV meanP.70 mmHg AR PHT: 440 ms RAP: 5.00 mmHg RVSP: 45.98 mmHg FINDINGS -------- Atrial fibrillation. This was a technically adequate study. The left ventricular size is normal. There is moderate concentric left ventricular hypertrophy. O verall left ventricular systolic function is mildly impaired with, an EF between 45 - 50 %. Left ve ntricular fillimg pressure cannot be estimated due to Atrial fibrillation. Basal inferolateral hypo kinesis. The right ventricle is normal in size. LA is severely dilated >40 ml/m2 The right atrial size is normal. Aortic valve is trileaflet and is mildly thickened. There is mild aortic valve sclerosis. Trace a mount of aortic regurgitation. Peak/mean gradient across the Aortic Valve is 11.20mmHg / 7.70mmHg. The mitral valve is normal. The mitral valve leaflets are mildly thickened. Mild mitral regurgita tion is present.Not well delineated on this study.May consider CHUNG if clinically indicted. The tricuspid valve appears structurally normal. Moderate tricuspid regurgitation present. There is mild pulmonary hypertension. The right ventricular systolic pressure, as measured by Doppler, is 45.98mmHg. There is no pulmonic regurgitation present. The aortic root size is normal. IVC Not well visulized. There is no pericardial effusion. CONCLUSIONS -------- 1. The left ventricular size is normal. 2. There is moderate concentric left ventricular hypertrophy. 3. Overall left ventricular systolic function is mildly impaired with, an EF between 45 - 50 %. 4. Left ventricular fillimg pressure cannot be estimated due to Atrial fibrillation. 5. Basal inferolateral hypokinesis. 6. LA is severely dilated >40 ml/m2 7. Aortic valve is trileaflet and is mildly thickened. 8. There is mild aortic valve sclerosis. 9. Trace amount of aortic regurgitation. 10. Peak/mean gradient across the Aortic Valve is 11.20mmHg / 7.70mmHg. 11. The mitral valve leaflets are mildly thickened. 12. Mild mitral regurgitation is present. 13. Moderate tricuspid regurgitation present. 14. There is mild pulmonary hypertension. 15. The right ventricular systolic pressure, as measured by Doppler, is 45.98mmHg. 16. There is no pericardial effusion. AVP: Alisa Borrego RDCS
[2021-08-04] MEDS: ACETAMINOPHEN TAB 325 MG TAB PO PRN (17:29)
--- NOTE | 2021-08-04 20:15 | P.PN ---
Progress Note - Text Progress Note Date: 08/04/21 Chief Complaint: Fall This is a pleasant 89-year-old patient brought to the ER with a fall. She was in the hallway at [facility] walking with the staff on the third and found her on the floor. Unclear if she fell on her head or face forward. Patient does not remember the circumstances around the same. She had some neck pain. She was given 50 g of fentanyl by the EMS. When she was sleeping the ER. Patient has underlying cognitive impairment. And normally uses a walker. She had a fall about a year ago. Most of this history is from the ER. Patient cannot tell me much about the fall Patient doesn't remember any chest pain or palpitation. No focal weakness. No change in speech August 02: Pain control. DC Dilaudid. Use Ultram when necessary. Tolerating diet. In bed. We'll start the patient on xarelto. Because she's in a supervised setting. August 03: Oral intake variable. Pain control. PTOT. Awaiting input from orthopedics August 04: Oral intake continues to be fluctuating. Has pain in the neck. Heating pad ordered. Also felt to have left hip anterior column of the Astelin fracture minimally displaced. Per orthopedics not operative intervention. Nonweightbearing status left lower extremity. Active Medications Acetaminophen (Acetaminophen Tab 325 Mg Tab) 650 mg PO Q6HR PRN PRN Reason: Mild Pain or Fever > 100.5 Last Admin: 08/04/21 17:29 Dose: 650 mg Documented by: Artificial Tears (Artificial Tears-Hypromellose Drops 15 Ml Btl) 1 - 2 drops BOTH EYES QID PRN PRN Reason: Dry Eye(s) Cephalexin (Cephalexin 500 Mg Cap) 500 mg PO Q8H KAYLEE; Protocol Last Admin: 08/04/21 17:29 Dose: 500 mg Documented by: Cholecalciferol (Cholecalciferol 25 Mcg (1000 Iu) Tablet) 50 mcg PO DAILY KAYLEE Last Admin: 08/04/21 09:00 Dose: 50 mcg Documented by: Cyanocobalamin (Cyanocobalamin 500 Mcg Tab) 1,000 mcg PO DAILY KAYLEE Last Admin: 08/04/21 08:59 Dose: 1,000 mcg Documented by: Cyclobenzaprine HCl (Cyclobenzaprine 5 Mg Tab) 5 mg PO TID PRN PRN Reason: Moderate Pain Last Admin: 08/03/21 10:32 Dose: 5 mg Documented by: Ezetimibe (Ezetimibe 10 Mg Tab) 10 mg PO DAILY [facility] Last Admin: 08/04/21 08:59 Dose: 10 mg Documented by: Metoprolol Tartrate (Metoprolol Tartrate 50 Mg Tab) 50 mg PO BID [facility] Last Admin: 08/04/21 08:59 Dose: 50 mg Documented by: Naloxone HCl (Naloxone 0.4 Mg/Ml 1 Ml Vial) 0.2 mg IV Q2M PRN PRN Reason: Opioid Reversal Ondansetron HCl (Ondansetron 4 Mg/2 Ml Vial) 4 mg IVP Q8HR PRN PRN Reason: Nausea And Vomiting Oxybutynin Chloride (Oxybutynin Xl 5 Mg Tab.Er.24) 5 mg PO DAILY [facility] Last Admin: 08/04/21 08:59 Dose: 5 mg Documented by: Prednisone (Prednisone 5 Mg Tab) 5 mg PO DAILY [facility] Last Admin: 08/04/21 09:00 Dose: 5 mg Documented by: Rivaroxaban (Rivaroxaban 10 Mg Tab) 10 mg PO HS [facility]; Protocol Last Admin: 08/03/21 21:03 Dose: 10 mg Documented by: Tramadol HCl (Tramadol 50 Mg Tab) 50 mg PO QID PRN PRN Reason: Pain Last Admin: 08/04/21 02:31 Dose: 50 mg Documented by: Valsartan (Valsartan 160 Mg Tab) 320 mg PO DAILY [facility] Last Admin: 08/04/21 09:00 Dose: 320 mg Documented by: Past medical history to include: Dementia, hyperlipidemia, hypertension, arthritis, skin cancer removed from the nose Social history: Lives at [facility]. Does use a walker. In close to be used 3 times a day. Able to wash herself and dress herself. Daughter Kimberli is DPOAE. No smoking or alcohol. Family history: CVA/TIA Physical examination: VITAL SIGNS: 98, 85, 16, 131/85, 98% room air GENERAL: Laying in bed, awake, comfortable EYES: Pupils equal. Conjunctiva normal. HEENT: External appearance of nose and ears normal, oral cavity grossly normal. Bruising of the left side of the neck. NECK: JVD not raised; masses not palpable. HEART: First and second heart sounds are normal; no edema. LUNGS: Respiratory rate normal; clear to auscultation. ABDOMEN: Soft, nontender, liver spleen not palpable, no masses palpable. PSYCH: Patient can answer simple questions. Cannot tell the year of the season.l. MUSCULOSKELETAL:No Clubbing/cyanosis;muscles-grossly intact. 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 EF 45-50%. Moderate TR. Urine culture: Klebsiella Pneumonia White count 12.3 hemoglobin 13.4 platelets 158 sodium 140 potassium 3.8 BUN 16 creatinine 0.96 Troponin I less than 0.012 UA positive for leukoesterase WBC EKG tracing personally reviewed by me-atrial fibrillation. Rate 91 Femur/hip pelvic x-ray: Personally reviewed by me. Left superior inferior pubic room I fracture. Previous hardware Assessment and plan: -Fall. Circumstances leading to the same unknown. Not witnessed. It could be from decreased heart rate from atrial fibrillation. Vasovagal as possible. Patient does use a walker at baseline. We'll give the patient on telemetry. Troponin is negative. Denies any chest pain. -Left superior and inferior pubic rami fracture, secondary to fall . Pain control. Conservative management -Left hip anterior column of the acetabulum fracture initially displaced with concentric femoral acetabular joint. Nonweightbearing left lower extremity for 4-6 weeks. -Acute UTI with possible cystitis, from klebsiella pneumoniae Continue Keflex -Chronic gait dysfunction uses a walker at baseline Fall precaution. PTOT. -Persistent atrial fibrillation, rate controlled Telemetry. As patient is in a supervised setting consider anticoagulation. 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 -Essential hypertension Diovan 320 mg daily -Chronic urinary incontinence Detrol LA 2 mg daily. -Hypercholesterolemia Zetia 10 mg daily. -DPOAE: donal Ag -DO NOT RESUSCITATE - Keflex. Fall precautions. Non weightbearing on the left lower extremity. For 4-6 weeks. Awaiting placement.
[2021-08-04] MEDS: RIVAROXABAN 10 MG TAB PO SCH (20:49)
[2021-08-05] MEDS: CEPHALEXIN 500 MG CAP PO SCH ×2 (00:34→09:13)
[2021-08-05] MEDS: traMADol 50 MG TAB PO PRN (00:34)
[2021-08-05] MEDS: CYCLOBENZAPRINE 5 MG TAB PO PRN (02:38)
[2021-08-05] MEDS ORDERED: METHYL SALICYLATE/MENTHOL CREAM 5 OZ TOPICAL PRN (08:15)
[2021-08-05 09:05] LABS: Anisocytosis Slight; Basophils # (A) 0.1 k/uL (0-0.2); Basophils % (A) 1 %; Eosinophils # (A) 0.2 k/uL (0-0.7); Eosinophils % (A) 2 %; HCT 45.1 % (34.0-46.0); HGB 14.2 gm/dL (11.4-16.0); Lymphocytes # (A) 1.5 k/uL (1.0-4.8); Lymphocytes % (A) 14 %; MCH 30.4 pg (25.0-35.0); MCHC 31.6 g/dL (31.0-37.0); MCV 96.4 fL (80.0-100.0); Mean Platelet Volume 9.7; Monocytes # (A) 0.6 k/uL (0-1.0); Monocytes % (A) 6 %; Neutrophils # (A) 7.9 k/uL (1.3-7.7); Neutrophils % (A) 76 %; Platelet Count 188 k/uL (150-450); RBC 4.68 m/uL (3.80-5.40); WBC 10.4 k/uL (3.8-10.6)
[2021-08-05 09:08] LABS: Potassium 4.3 mmol/L (3.5-5.1)
[2021-08-05] MEDS: METOPROLOL TARTRATE 50 MG TAB PO SCH (09:13)
[2021-08-05] MEDS: EZETIMIBE 10 MG TAB PO SCH (09:13)
[2021-08-05] MEDS: CHOLECALCIFEROL 25 MCG (1000 IU) TABLET PO SCH (09:13)
[2021-08-05] MEDS: ACETAMINOPHEN TAB 325 MG TAB PO PRN (09:13)
[2021-08-05] MEDS: OXYBUTYNIN XL 5 MG TAB.ER.24 PO SCH (09:13)
[2021-08-05] MEDS: predniSONE 5 MG TAB PO SCH (09:13)
[2021-08-05] MEDS: CYANOCOBALAMIN 500 MCG TAB PO SCH (09:13)
[2021-08-05] MEDS: VALSARTAN 160 MG TAB PO SCH (09:13)
[2021-08-05 11:49] VITALS: BP 144/67; RESP 18; TEMP 98.1
--- NOTE | 2021-08-05 12:09 | P.DS ---
Providers Date of admission: 08/01/21 11:08 Expected date of discharge: 08/05/21 Attending physician: Eduard Harry Consults: 08/02/21 17:27 Consult Physician Routine Consulting Provider: Pete Fontana Consult Reason/Comments: Pubic rami fracture Do you want consulting provider notified?: Yes Primary care physician: [facility] Course: Chief Complaint: Fall This is a pleasant 89-year-old patient brought to the ER with a fall. She was in the hallway at [facility] walking with the staff on the third and found her on the floor. Unclear if she fell on her head or face forward. Patient does not remember the circumstances around the same. She had some neck pain. She was given 50 g of fentanyl by the EMS. When she was sleeping the ER. Patient has underlying cognitive impairment. And normally uses a walker. She had a fall about a year ago. Most of this history is from the ER. Patient cannot tell me much about the fall Patient doesn't remember any chest pain or palpitation. No focal weakness. No change in speech August 02: Pain control. DC Dilaudid. Use Ultram when necessary. Tolerating diet. In bed. We'll start the patient on xarelto. Because she's in a supervised setting. August 03: Oral intake variable. Pain control. PTOT. Awaiting input from orthopedics August 04: Oral intake continues to be fluctuating. Has pain in the neck. Heating pad ordered. Also felt to have left hip anterior column of the Astelin fracture minimally displaced. Per orthopedics not operative intervention. Nonweightbearing status left lower extremity. August 05: He did grow back for the neck. Not weightbearing on the left leg. Accepted at [facility] rehab. OBRA done Discussion and discharge planning more than 35 minutes Past medical history to include: Dementia, hyperlipidemia, hypertension, arthritis, skin cancer removed from the nose Social history: Lives at [facility]. Does use a walker. In close to be used 3 times a day. Able to wash herself and dress herself. Daughter Kimberli is DPOAE. No smoking or alcohol. Family history: CVA/TIA Physical examination: VITAL SIGNS: 98.1, 80, 16, 1 44 x 67, 96% 2 L GENERAL: Reclining in bed, awake, comfortable EYES: Pupils equal. Conjunctiva normal. HEENT: External appearance of nose and ears normal, oral cavity grossly normal. Bruising of the left side of the neck-improving. NECK: JVD not raised; masses not palpable. HEART: First and second heart sounds are normal; no edema. LUNGS: Respiratory rate normal; clear to auscultation. ABDOMEN: Soft, nontender, liver spleen not palpable, no masses palpable. PSYCH: Patient can answer simple questions. Cannot tell the year of the season.l. MUSCULOSKELETAL:No Clubbing/cyanosis;muscles-grossly intact. Evidence of OA in several joints INVESTIGATIONS, reviewed in the clinical context: August 05: White count 10.4 hemoglobin 14.2 platelets 188 potassium 4.3 creatinine 0.9 2-D echocardiogram: Moderate concentric LVH. EF 45-50%. Moderate TR. Urine culture: Klebsiella Pneumonia White count 12.3 hemoglobin 13.4 platelets 158 sodium 140 potassium 3.8 BUN 16 creatinine 0.96 Troponin I less than 0.012 UA positive for leukoesterase WBC EKG tracing personally reviewed by me-atrial fibrillation. Rate 91 Femur/hip pelvic x-ray: Personally reviewed by me. Left superior inferior pubic room I fracture. Previous hardware Assessment and plan: -Fall. Circumstances leading to the same unknown. Not witnessed. It could be from decreased heart rate from atrial fibrillation. Vasovagal as possible. P atient does use a walker at baseline. We'll give the patient on telemetry. Troponin is negative. Denies any chest pain. -Left superior and inferior pubic rami fracture, secondary to fall . Pain control. Conservative management -Left hip anterior column of the acetabulum fracture initially displaced with concentric femoral acetabular joint. Nonweightbearing left lower extremity for 4-6 weeks. -Acute UTI with possible cystitis, from klebsiella pneumoniae Continue Keflex -Chronic gait dysfunction uses a walker at baseline Fall precaution. PTOT. -Persistent atrial fibrillation, rate controlled Telemetry. As patient is in a supervised setting consider anticoagulation. 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 -Essential hypertension Diovan 320 mg daily -Chronic urinary incontinence Detrol LA 2 mg daily. -Hypercholesterolemia Zetia 10 mg daily. -DPOAE: donal Ag -DO NOT RESUSCITATE - [facility] Plan - Discharge Summary Discharge Rx Participant: No New Discharge Prescriptions: New traMADol HCl [Ultram] 50 mg PO Q6H PRN #12 tab PRN Reason: Pain Rivaroxaban [Xarelto] 10 mg PO HS tab Cyclobenzaprine [Flexeril] 5 mg PO TID PRN tab PRN Reason: Moderate Pain Cephalexin [Keflex] 500 mg PO Q8H #12 cap Continue Valsartan [Diovan] 320 mg PO DAILY Metoprolol Tartrate [Lopressor] 50 mg PO BID Ezetimibe [Zetia] 10 mg PO DAILY Cholecalciferol [Vitamin D3 (25 Mcg = 1000 Iu)] 50 mcg PO DAILY Artificial Tears-Hypromellose [Artificial Tear Drops] 1 - 2 drops BOTH EYES QID PRN PRN Reason: Dry Eye(S) Acetaminophen Tab [Tylenol] 500 - 1,000 mg PO Q6H PRN PRN Reason: Fever And/ Or Pain Tolterodine ER [Detrol LA] 2 mg PO DAILY Cyanocobalamin (Vitamin B-12) [Vitamin B-12] 1,000 mcg PO DAILY predniSONE 5 mg PO DAILY Discontinued Escitalopram [Lexapro] 5 mg PO DAILY Nitrofurantoin Monohyd/M-Cryst [Macrobid] 100 mg PO Q12H Memantine [Namenda] 10 mg PO BID Loperamide HCl [Loperamide] 2 - 4 mg PO QID PRN PRN Reason: Diarrhea Discharge Medication List Ezetimibe [Zetia] 10 mg PO DAILY 06/29/20 [History] Metoprolol Tartrate [Lopressor] 50 mg PO BID 06/29/20 [History] Valsartan [Diovan] 320 mg PO DAILY 06/29/20 [History] Cholecalciferol [Vitamin D3 (25 Mcg = 1000 Iu)] 50 mcg PO DAILY 10/18/20 [History] Acetaminophen Tab [Tylenol] 500 - 1,000 mg PO Q6H PRN 08/01/21 [History] Artificial Tears-Hypromellose [Artificial Tear Drops] 1 - 2 drops BOTH EYES QID PRN 08/01/21 [History] Cyanocobalamin (Vitamin B-12) [Vitamin B-12] 1,000 mcg PO DAILY 08/01/21 [History] Tolterodine ER [Detrol LA] 2 mg PO DAILY 08/01/21 [History] predniSONE 5 mg PO DAILY 08/01/21 [History] Cephalexin [Keflex] 500 mg PO Q8H #12 cap 08/05/21 [Rx] Cyclobenzaprine [Flexeril] 5 mg PO TID PRN tab 08/05/21 [Rx] Rivaroxaban [Xarelto] 10 mg PO HS tab 08/05/21 [Rx] traMADol HCl [Ultram] 50 mg PO Q6H PRN #12 tab 08/05/21 [Rx] Follow up Appointment(s)/Referral(s): Pete Fontana DO [Doctor of Osteopathic Medicine] - 2 Weeks Kei Wallace MD [Primary Care Provider] - 1-2 days Activity/Diet/Wound Care/Special Instructions: Nonweightbearing left lower extremity with walking. may do touchdown weightbearing for balance left lower extremity during transfers
[2021-08-05 14:05] VITALS: PULSE 81
== END 2021-08-05 14:03 | DRG 535 ==
LOC: EC 08:26 → 3SCARD 11:08
PROVIDERS: ADMIT Hospitalist; ATTEND Hospitalist
DX: S32.592A Other specified fracture of left pubis, initial encounter for closed fracture (principal); S32.402A Unspecified fracture of left acetabulum, initial encounter for closed fracture; I48.19 Other persistent atrial fibrillation; N30.00 Acute cystitis without hematuria; W19.XXXA Unspecified fall, initial encounter; I48.91 Unspecified atrial fibrillation; W18.30XA Fall on same level, unspecified, initial encounter; B96.1 Klebsiella pneumoniae [K. pneumoniae] as the cause of diseases classified elsewhere; S16.1XXA Strain of muscle, fascia and tendon at neck level, initial encounter; I08.3 Combined rheumatic disorders of mitral, aortic and tricuspid valves; I27.20 Pulmonary hypertension, unspecified; G30.1 Alzheimer's disease with late onset; G31.84 Mild cognitive impairment of uncertain or unknown etiology; R55 Syncope and collapse; F02.80 Dementia in other diseases classified elsewhere, unspecified severity, without behavioral disturbance, psychotic disturbance, mood disturbance, and anxiety; M19.90 Unspecified osteoarthritis, unspecified site; Z20.822 Contact with and (suspected) exposure to COVID-19; I10 Essential (primary) hypertension; R32 Unspecified urinary incontinence; Z66 Do not resuscitate; E78.00 Pure hypercholesterolemia, unspecified; Z79.899 Other long term (current) drug therapy; Z85.828 Personal history of other malignant neoplasm of skin; E78.5 Hyperlipidemia, unspecified; M06.9 Rheumatoid arthritis, unspecified; Z82.3 Family history of stroke; Z82.49 Family history of ischemic heart disease and other diseases of the circulatory system; Z86.73 Personal history of transient ischemic attack (TIA), and cerebral infarction without residual deficits; Z88.6 Allergy status to analgesic agent
CPT/HCPCS: 36415; 51702; 70450; 72125; 72192; 73521; 80048; 80053; 81001; 84484; 85025; 85610; 87077; 87086; 87186; 87635; 93005; 93306; 94760; 96374; 96375; 99285